=== PATIENT | male | born 1950 | race Caucasian/White ===

== ENCOUNTER 2017-12-30 17:55 | Emergency (ER) | payer OTHER, MEDICAID ==
--- NOTE | 2017-12-30 18:14 | EDPHY ---
H & P Stated Complaint: fever since yesterday, swelling in legs Source: Patient, Family (son), Old records Exam Limitations: No limitations - Personal History Current Tetanus Diphtheria and Acellular Pertussis (TDAP): Unsure - Medical/Surgical History Hx Asthma: No Hx Chronic Respiratory Disease: No Hx Diabetes: Yes Hx Cardiac Disease: Yes Hx Renal Disease: No Hx Cirrhosis: No Hx Alcoholism: No Hx HIV/AIDS: No Hx Splenectomy or Spleen Trauma: No Other PMH: DM2, hyperlipidemia, HTN, Hypogonadism, paresthesia, peripheral neuropathy - Social History Smoking Status: Never smoked Time Seen by Provider: 12/30/17 18:14 HPI/ROS: HPI: This is a 67-year-old male who presents with Chief Complaint: fever since yesterday, swelling in legs Location: Body Quality: Fever Duration: Last night Signs and Symptoms: + fever, no nausea, no vomiting, no diarrhea, no urinary symptoms, no chest pain, no shortness of breath, no wheezing, no cough, no sore throat, no neck stiffness, no joint pain, no swollen glands, no ear pain, + chronic lower extremity swelling Timing: Acute Severity: Moderate Context: Patient lives at [facility] presents with complaints of fever that started last night accompanied by chills. He denies any body aches, cough, shortness of breath, chest pain, neck stiffness, abdominal pain, nausea, vomiting. Patient has chronic history of lower extremity venous stasis; left greater than right. Son at bedside reports that is at baseline. Takes aspirin daily unsure of last antipyretic does. Denies any urinary symptoms. Ate breakfast today and lunch but has not had dinner. Vital signs reviewed upon arrival and no fever. Denies history of CHF/shortness of breath/orthopnea/ paroxysmal nocturnal dyspnea. Modifying Factors: Regular home medications Comment: ROS: see HPI Constitutional: + fever, + chills, no weight loss Eyes: No blurred vision Respiratory: No shortness of breath, no cough Cardiovascular: No chest pain, no palpitations Gastrointestinal: No nausea, no vomiting, no diarrhea, no hematemesis, no blood in stool Genitourinary: No dysuria, no blood in urine Extremities: No myalgias, no edema Neurologic: No weakness, no numbness Skin: No rashes, no petechiae Hematologic: No bruising, no bleeding MEDICAL/SURGICAL/SOCIAL HISTORY: Medical history: DM2, hyperlipidemia, HTN, Hypogonadism, paresthesia, peripheral neuropathy Surgical history: Unknown Social history: Lives in assisted living. Family history noncontributory. CONSTITUTIONAL: Ill but nontoxic-appearing elderly white male, awake and alert , no obvious distress HEENT: Atraumatic and normocephalic, PERRL, EOMI. Nares patent; no rhinorrhea; no nasal mucosal edema. Tympanic membranes clear. Oropharynx clear, no exudate and dry oral mucosa. Airway patent. No lymphadenopathy. No meningismus. no JVD. Cardiovascular: Normal S1/S2, regular rate, regular rhythm, without murmur rub or gallop. PULMONARY/CHEST: Symmetrical and nontender. Clear to auscultation bilaterally. Good air movement. No accessory muscle usage. ABDOMEN: Soft, nondistended, nontender, no rebound, no guarding, no peritoneal signs, no masses or organomegaly. No CVAT. EXTREMITIES: 2/2 pulses, strength 5/5, no deformities, no clubbing, no cyanosis. Bilateral extremity chronic venous noted with scaliness; left calf larger than right-baseline per son. robert sized stage 1 ulceration noted pad of 1st digit left foot. NEUROLOGICAL: no focal neuro deficits. GCS 15. SKIN: Warm and dry, no erythema. no rash. Good capillary refill. (Jewell Bond) Constitutional: Initial Vital Signs Temperature (C) 37.7 C 12/30/17 18:00 Heart Rate 99 12/30/17 18:00 Respiratory Rate 20 12/30/17 18:00 Blood Pressure 163/89 H 12/30/17 18:00 O2 Sat (%) 94 12/30/17 18:00 O2 Delivery Mode Room Air Allergies/Adverse Reactions: No Known Allergies Allergy (Unverified 02/17/14 13:23) Home Medications: Medication Instructions Recorded Cholestoff 2 cap PO BID 02/17/14 Losartan Potassium [Cozaar] 100 mg PO HS 02/17/14 Multivitamins [Multivitamin (*)] 1 each PO DAILY 02/17/14 Testosterone IM [Testosterone 200 mg IM Q21D 02/17/14 100mg/ml IM inj (*)] glyBURIDE [Glyburide] 2.5 mg PO DAILY@18 02/17/14 metFORMIN HCL [Glucophage 500 mg 1,000 mg PO BIDMEAL 02/17/14 (*)] Amlodipine Besylate 12/30/17 Clonazepam 12/30/17 Gabapentin 12/30/17 Methotrexate 12/30/17 Myrbetriq 12/30/17 Medical Decision Making - Diagnostics Imaging Results: Imaging Impressions Chest X-Ray 12/30/17 18:30 Impression: 1. Large lung volumes without pneumonia. 2. Borderline compensated CHF. Extremity Venous Study 12/30/17 18:35 Impression: 1. No deep venous thrombosis left leg. 2. Left calf edema. 3. Bilateral inguinal lymphadenopathy. Clinical follow-up is recommended. Consider reimaging as clinically indicated. ED Course/Re-evaluation: Fever workup initiated including lab, urinalysis, chest x-ray, blood culture, bilateral lower extremity ultrasound Vital signs stable upon arrival. Given 1 L normal saline. No signs of herve cellulitis/abscess. 1910: Labs reviewed. Mild leukocytosis with left shift. No signs of anemia/ PHYLLIS/elevated LFTs/electrolyte imbalance/lactic acidosis. Influenza negative Urinalysis shows 2+ protein but no clear signs of infection/hematuria Chest x-ray radiology read shows large lung volumes with questionable borderline CHF, no herve opacity to indicate pneumonia. Left lower extremity ultrasound shows no deep venous thrombosis. O2 sats showed no hypoxia. pro-BNP 229. no herve suggestion of CHF. No prior history of CHF. no fever while in the ER. At discharge; son reports to me that patient has an ulcer at the bottom of his left foot-unknown time. Politely declined any imaging in the emergency room. No herve fluctuance to I and D. No signs of gangrene. Requesting wound clinic follow-up outpatient. Reassessed patient who is drinking fluids and eating Victor Manuel crackers at bedside. Requesting to be discharged. decreased coordination noted. again, offered admission and patient/family politely declined. wish to follow up outpatient. This patient was seen under the supervision of my secondary supervising physician. I evaluated care for this patient independently. Discussed this patient with Dr. Man who did not see the patient. (Jewell Bond) I did not see this patient while he was in the emergency department. However his care was discussed with the PA while the patient was in the department. I agree with treatment plan and management (Mello Man) Differential Diagnosis: Adult fever including but not limited to viral syndromes including influenza, urinary tract infection, pneumonia and sepsis. (Jewell Bond) - Data Points Laboratory Results: Laboratory Results 12/30/17 18:20 12/30/17 18:20 12/30/17 12/30/17 12/30/17 18:56 18:37 18:20 WBC RBC Hgb Hct MCV MCH MCHC RDW Plt Count MPV Neut % (Auto) Lymph % (Auto) [place] % (Auto) Eos % (Auto) Baso % (Auto) Nucleat RBC Rel Count Absolute Neuts (auto) Absolute Lymphs (auto) Absolute Monos (auto) Absolute Eos (auto) Absolute Basos (auto) Absolute Nucleated RBC Immature Gran % Immature Gran # VBG Lactic Acid Sodium Potassium Chloride Carbon Dioxide Anion Gap BUN Creatinine Estimated GFR Glucose Calcium Total Bilirubin Conjugated Bilirubin Unconjugated Bilirubin AST ALT Alkaline Phosphatase NT-Pro-B Natriuret Pep 229 pg/mL H pg/mL (0-125) Total Protein Albumin Urine Color YELLOW Urine Appearance CLEAR Urine pH 6.0 (5.0-7.5) Ur Specific [place] 1.017 (1.002-1.030) Urine Protein 2+ H (NEGATIVE) Urine Ketones NEGATIVE (NEGATIVE) Urine Blood NEGATIVE (NEGATIVE) Urine Nitrate NEGATIVE (NEGATIVE) Urine Bilirubin NEGATIVE (NEGATIVE) Urine Urobilinogen NEGATIVE EU EU (0.2-1.0) Ur Leukocyte Esterase NEGATIVE (NEGATIVE) Urine RBC 1-3 /hpf /hpf (0-3) Urine WBC 1-3 /hpf /hpf (0-3) Ur Epithelial Cells TRACE /lpf /lpf (NONE-1+) Urine Mucus TRACE /lpf /lpf (NONE-1+) Urine Glucose NEGATIVE (NEGATIVE) Nasal Influenza A PCR NEGATIVE FOR FLU A (NEGATIVE) Nasal Influenza B PCR NEGATIVE FOR FLU B (NEGATIVE) 12/30/17 12/30/17 12/30/17 18:20 18:20 18:20 WBC 10.66 10^3/uL H 10^3/uL (3.80-9.50) RBC 4.59 10^6/uL 10^6/uL (4.40-6.38) Hgb 14.7 g/dL g/dL (13.7-17.5) Hct 42.5 % % (40.0-51.0) MCV 92.6 fL fL (81.5-99.8) MCH 32.0 pg pg (27.9-34.1) MCHC 34.6 g/dL g/dL (32.4-36.7) RDW 13.9 % % (11.5-15.2) Plt Count 214 10^3/uL 10^3/uL (150-400) MPV 9.3 fL fL (8.7-11.7) Neut % (Auto) 83.8 % H % (39.3-74.2) Lymph % (Auto) 7.6 % L % (15.0-45.0) [place] % (Auto) 7.4 % % (4.5-13.0) Eos % (Auto) 0.0 % L % (0.6-7.6) Baso % (Auto) 0.7 % % (0.3-1.7) Nucleat RBC Rel Count 0.0 % % (0.0-0.2) Absolute Neuts (auto) 8.94 10^3/uL H 10^3/uL (1.70-6.50) Absolute Lymphs (auto) 0.81 10^3/uL L 10^3/uL (1.00-3.00) Absolute Monos (auto) 0.79 10^3/uL 10^3/uL (0.30-0.80) Absolute Eos (auto) 0.00 10^3/uL L 10^3/uL (0.03-0.40) Absolute Basos (auto) 0.07 10^3/uL 10^3/uL (0.02-0.10) Absolute Nucleated RBC 0.00 10^3/uL 10^3/uL (0-0.01) Immature Gran % 0.5 % % (0.0-1.1) Immature Gran # 0.05 10^3/uL 10^3/uL (0.00-0.10) VBG Lactic Acid 1.1 mmol/L mmol/L (0.7-2.1) Sodium 134 mEq/L L mEq/L (135-145) Potassium 4.4 mEq/L mEq/L (3.5-5.2) Chloride 100 mEq/L mEq/L (97-110) Carbon Dioxide 24 mEq/l mEq/l (22-31) Anion Gap 10 mEq/L mEq/L (8-16) BUN 21 mg/dL mg/dL (7-23) Creatinine 1.0 mg/dL mg/dL (0.7-1.3) Estimated GFR > 60 Glucose 169 mg/dL H mg/dL (70-100) Calcium 8.7 mg/dL mg/dL (8.5-10.4) Total Bilirubin 0.6 mg/dL mg/dL (0.1-1.4) Conjugated Bilirubin 0.4 mg/dL mg/dL (0.0-0.5) Unconjugated Bilirubin 0.2 mg/dL mg/dL (0.0-1.1) AST 19 IU/L IU/L (17-59) ALT 35 IU/L IU/L (21-72) Alkaline Phosphatase 72 IU/L IU/L (38-126) NT-Pro-B Natriuret Pep Total Protein 6.9 g/dL g/dL (6.3-8.2) Albumin 3.6 g/dL g/dL (3.5-5.0) Urine Color Urine Appearance Urine pH Ur Specific [place] Urine Protein Urine Ketones Urine Blood Urine Nitrate Urine Bilirubin Urine Urobilinogen Ur Leukocyte Esterase Urine RBC Urine WBC Ur Epithelial Cells Urine Mucus Urine Glucose Nasal Influenza A PCR Nasal Influenza B PCR Medications Given: Discontinued Medications Sodium Chloride (Ns) 1,000 mls @ 0 mls/hr IV ONCE ONE; Wide Open PRN Reason: Protocol Stop: 12/30/17 18:30 Last Admin: 12/30/17 18:41 Dose: 1,000 mls Departure - Departure Disposition: Home, Routine, Self-Care Clinical Impression: History of unexplained fever Decubitus ulcer of foot, stage 1 Qualifiers: Laterality: left Qualified Code(s): L89.891 - Pressure ulcer of other site, stage 1 Type 2 DM with diabetic peripheral angiopathy w/o gangrene Qualifiers: Diabetes mellitus buttermaker continuous churn insulin use: without buttermaker continuous churn use Qualified Code(s ): E11.51 - Type 2 diabetes mellitus with diabetic peripheral angiopathy without gangrene Condition: Good Instructions: Fever in Adults (ED), Pressure Ulcer (ED) Additional Instructions: Follow-up with primary care provider in 1-2 days for close re-evaluation. Please place padding on the heels and feet of both feet to prevent skin breakdown. Follow-up with the wound clinic for further evaluation of the left decubitus ulcer in the next 3-4 days. Take Tylenol 650 mg every 4 hours and/or Ibuprofen 600 mg every 8 hours with food as needed for pain. Follow-Up: Please follow-up as noted above. Follow-up sooner if your condition worsens or if you develop any new problems. Call as soon as possible for an appointment. Be clear when you call for an appointment that this is an Emergency Department follow-up. Contact the Emergency Department if you have trouble arranging follow-up care. Our referrals are not based on your insurance network. When time allows, contact your insurance carrier to verify the referral physician is in your plan. If not, get a referral for an in-ethernet network architect. Return at once for any worsening symptoms or concerns. Referrals: Ta Cobb MD [Primary Care Provider] - 1-2 days without fail [facility] [Clinic] - 2-3 days without fail
[2017-12-30] MEDS ORDERED: NS 1,000 ML IV ONE (18:29)
[2017-12-30 18:44] LABS: PLATELET COUNT 214 10^3/uL (150-400)
[2017-12-30 19:54] VITALS: BP 179/83
== END 2017-12-30 20:28 | disposition home or self-care (01) ==
DX: E11.51 Type 2 diabetes mellitus with diabetic peripheral angiopathy without gangrene (principal); L89.891 Pressure ulcer of other site, stage 1; R50.9 Fever, unspecified; I10 Essential (primary) hypertension; E86.9 Volume depletion, unspecified; Z79.84 Long term (current) use of oral hypoglycemic drugs

== ENCOUNTER 2018-01-23 09:58 | Inpatient (IN) | payer OTHER, MEDICAID ==
[~2018-01-23 09:58] MED LIST: BUPIVACAINE 0.5% 30 ML SDV ONE; VANCOMYCIN 1.5 GM in NS 250 ML IV ONE; VANCOMYCIN PHARMACY TO DOSE MISC ONE
[2018-01-23] MEDS ORDERED: ceFAZolin 2 GM/SWFI 2 GM/20 ML SYR IVP ONE (10:04)
[2018-01-23] MEDS ORDERED: LR 1,000 ML IV ONE (10:14)
--- NOTE | 2018-01-23 10:31 | GHP ---
[f rep st] PREOP HISTORY AND PHYSICAL DATE OF ADMISSION: 01/23/2018 DATE OF SURGERY: 01/23/2018. CHIEF COMPLAINT: Diabetic foot ulcer. HISTORY OF PRESENT ILLNESS: The patient is a 67-year-old man who has [facility] for a diabetic foot ulcer and wound care. He has had debridement in the office. He has bone exposed in the base of the wound, but he was not yet ready to proceed with amputation. He is not currently on antibiotics. He denies fevers, chills, redness, swelling or pain. He has a significant degree of diabetic neuropathy. PAST MEDICAL HISTORY: Type 2 diabetes, hyperlipidemia, hypertension, neuropathy. SOCIAL HISTORY: He lives alone. He denies tobacco, alcohol or recreational drug use. FAMILY HISTORY: Noncontributory to wound. ALLERGIES: No known drug allergies. PAST SURGICAL HISTORY: None. REVIEW OF SYSTEMS: Ten-point review of systems negative, aside from HPI. PHYSICAL EXAMINATION: GENERAL: Well-developed, well-nourished man in no acute distress. HEENT: Normocephalic, atraumatic. No hearing deficits. Pupils equal and round. No scleral icterus. Mucous membranes moist. NECK: Trachea midline. RESPIRATORY: No increased work of breathing. Clear to auscultation bilaterally. CARDIOVASCULAR: Regular rate and rhythm. No peripheral edema. SKIN: He has a wound on the left lower extremity, plantar surface, which probes to bone, of the 5th metatarsal head. Malodorous, significant slough in the wound. Additional wound of L calcaneous. PSYCH: Mood and affect normal. NEURO: Grossly intact. IMPRESSION AND PLAN: A 67-year-old man with diabetic foot ulcer, suspected osteomyelitis. He will go to the operating room for left 5th toe amputation with debridement of skin and soft tissue of the calcaneous. He will receive antibiotics on-call to the operating room. We discussed risks of surgery, including but not limited to, heart attack, stroke, blood clots or . We discussed risk of infection, bleeding, damage to surrounding structures, delayed wound healing, need for additional procedures. He understands the risks and would like to proceed. He will receive antibiotics on-call to the operating room. Consent will be signed and in his chart. Additionally, seen by Dr. Alexandra Presley, who agrees with the above impression and plan. /[id number]/MODL MTDD
--- NOTE | 2018-01-23 10:35 | CPEKG ---
Heart Rate: 73 RR Interval: 822 P-R Interval: 208 QRSD Interval: 96 QT Interval: 376 QTC Interval: 415 P Creole: 68 QRS Creole: -8 T Wave Creole: 17 EKG Severity - ABNORMAL ECG - EKG Impression: SINUS RHYTHM Electronically Signed By: Campbell Bess 24-Jan-2018 09:29:28
--- NOTE | 2018-01-23 11:16 | PDHPUP ---
History & Physical Update H&P update statement: This history and physical update is based on an assessment of the patient which was completed after admission or registration (within 24 hours), but prior to the surgery/procedure. H&P update: H&P reviewed & patient examined, no change in patient's condition since H&P completed (will not debride heel)
--- NOTE | 2018-01-23 12:52 | PDANEPAE ---
ANE History of Present Illness diabetic foot, here for toe amputation ANE Past Medical History - Cardiovascular History Hx Hypertension: Yes Hx Arrhythmias: No Hx Chest Pain: No Hx Coronary Artery / Peripheral Vascular Disease: Yes Hx CHF / Valvular Disease: No Hx Palpitations: No Cardiovascular History Comment: PVD Diabetes - Pulmonary History Hx COPD: No Hx Asthma/Reactive Airway Disease: No Hx Recent Upper Respiratory Infection: No Hx Oxygen in Use at Home: No Hx Sleep Apnea: No Sleep Apnea Screening Result - Last Documented: Positive Pulmonary History Comment: LAURA triggers only - Neurologic History Hx Cerebrovascular Accident: No Hx Seizures: No Hx Dementia: No Neurologic History Comment: COGNITIVE IMPAIRMENT - Endocrine History Hx Diabetes: Yes Endocrine History Comment: type 11 NIDDM - Renal History Hx Renal Disorders: No - Liver History Hx Hepatic Disorders: No - Neurological & Psychiatric Hx Hx Neurological and Psychiatric Disorders: Yes Neurological / Psychiatric History Comment: NEUROPATHY, POLYMYOSITIS - Cancer History Hx Cancer: No - Congenital Disorder History Hx Congenital Disorders: No - GI History Hx Gastrointestinal Disorders: No - Other Health History Other Health History: LEFT FOOT ULCERS/CELLULITIS - Chronic Pain History Chronic Pain: Yes (NEUROPATHY TO FEET) - Surgical History Prior Surgeries: none ANE Review of Systems Review of Systems: - Exercise capacity METS (RN): 3 METS ANE Patient History - Allergies Allergies/Adverse Reactions: No Known Allergies Allergy (Verified 01/20/18 10:33) - Home Medications Home medications: home medication list seen and reviewed Home Medications: Multivitamins [Multivitamin (*)] 1 each PO DAILY 02/17/14 [Last Taken 01/22/18] Testosterone IM [Testosterone 100mg/ml IM inj (*)] 250 mg IM Q21D 02/17/14 [ Last Taken 01/02/18] metFORMIN HCL [Glucophage 500 mg (*)] 1,000 mg PO BIDMEAL 02/17/14 [Last Taken 01/22/18] Gabapentin [Neurontin 300 MG (*)] 300 mg PO TID@,,12/30/17 [Last Taken ] Methotrexate Sodium [Rheumatrex 2.5 mg (RX)] 7.5 mg PO MO@0700 12/30/17 [Last Taken 01/18/18] amLODIPine BESYLATE [Norvasc 5 mg (*)] 5 mg PO DAILY 12/30/17 [Last Taken 06:00] Folic Acid [Folic Acid 1 MG (*)] 1 mg PO DAILY 01/20/18 [Last Taken 01/22/18] Furosemide [Lasix 40 MG (*)] 40 mg PO DAILY 01/20/18 [Last Taken 01/21/18] Gabapentin [Neurontin 300 MG (*)] 300 - 600 mg PO HS 01/20/18 [Last Taken ] Herbals/Supplements -Info Only 1 ea PO DAILY 01/20/18 [Last Taken 01/22/18] Losartan/Hydrochlorothiazide [Losartan-Hctz 100-25 mg Tab] 1 each PO DAILY 01/20 [Last Taken 01/22/18] clonIDINE [Catapres (*)] 0.1 mg PO BID 01/20/18 [Last Taken 01/23/18 06:00] glipiZIDE XL [Glucotrol XL 10 MG (*)] 10 mg PO DAILY 01/20/18 [Last Taken ] Myrbetriq 01/23/18 [Last Taken 01/23/18] - NPO status NPO Since - Liquids (Date): 01/23/18 NPO Since - Liquids (Time): 08:00 NPO Since - Solids (Date): 01/22/18 NPO Since - Solids (Time): 18:00 - Anes Hx Anes Hx: no prior problems - Smoking Hx Smoking Status: Never smoked - Alcohol Use Alcohol Use: Rarely - Family Anes Hx Family Anes Hx: none Family Hx Anesthesia Complications: none ANE Labs/Vital Signs - Labs Result Diagrams: 01/23/18 10:40 - Vital Signs Blood Pressure: 133/77 Heart Rate: 77 Respiratory Rate: 18 O2 Sat (%): 92 Height: 185.42 cm Weight: 95.254 kg ANE Physical Exam - Airway Neck exam: FROM Mallampati Score: Class 2 Mouth exam: poor dentition, dentures - Pulmonary Pulmonary: no respiratory distress, clear to auscultation - Cardiovascular Cardiovascular: regular rate and rhythym, no murmur, rub, or gallop - ASA Status ASA Status: III ANE Anesthesia Plan Anesthesia Plan: GA w LMA
[2018-01-23] MEDS ORDERED: fentaNYL 100 MCG/2 ML INJ ONE ×2 (12:57→14:28)
[2018-01-23] MEDS ORDERED: PROPOFOL 200 MG/20 ML VIAL ONE (12:57)
--- NOTE | 2018-01-23 14:05 | POSTOPPROG ---
Post Op Note Date of Operation: 01/23/18 Surgeon: Alexandra Presley Assistant Associate Professor: lyric Anesthesiologist: rhoda Anesthesia: GET(General Endotracheal) Pre-op Diagnosis: DFU Post-op Diagnosis: same Indication: 67yo F with DFU Procedure: amputation L 5th toe and met head, debride skin soft tissue and tendon Findings: tunneling medially along plantar fascia 7cm, wound 9x3x1 Inf/Abcess present in the surg proc area at time of surgery?: Yes Depth: Deep Incisional (Fascial) EBL: Minimal Drains: Wound Vac Specimen(s): toe path met head micro met head path
[2018-01-23] MEDS ORDERED: HYDROCODONE/APAP 5/325 TAB PO PRN (14:06)
[2018-01-23] MEDS ORDERED: diphenhydrAMINE 25 MG CAP PO PRN (14:06)
[2018-01-23] MEDS ORDERED: ONDANSETRON 4 MG/2 ML VIAL IVP PRN ×2 (14:06→14:19)
[2018-01-23] MEDS ORDERED: ONDANSETRON DISINTEGRATING 4 MG TAB PO PRN (14:06)
[2018-01-23] MEDS ORDERED: D50W 25 GM/50 ML SYR IVP PRN ×2 (14:06→16:12)
[2018-01-23] MEDS ORDERED: HYDROmorphONE/DILAUDID 2 MG/ML INJ IVP PRN (14:19)
[2018-01-23] MEDS ORDERED: NALOXONE HCL 0.4 MG/ML INJ IVP PRN (14:19)
[2018-01-23] MEDS ORDERED: PROMETHAZINE HCL 25 MG/ML INJ IVP PRN (14:19)
--- NOTE | 2018-01-23 14:21 | POSTANESTH ---
Post Anesthetic Evaluation Cardiovascular Status: Normal, Stable, Similar to Pre-Op Cond Respiratory Status: Normal, Stable, Similar to Pre-op Cond. Level of Consciousness/Mental Status: Can Participate in Eval, Mildly Sleepy, Arousable Pain Control: Adequate, Prn Tx Ordered Nausea/Vomiting Control: Adequate, Prn Tx Ordered Complications Possibly Related to Anesthesia: None Noted
[2018-01-23] MEDS: fentaNYL 100 MCG/2 ML INJ IVP PRN ×2 (14:29→14:36)
[2018-01-23] MEDS ORDERED: HYDROmorphONE/DILAUDID 1 MG/ML INJ ONE (14:55)
--- NOTE | 2018-01-23 14:58 | ASMTCMCOM ---
CM Note CM Note Notes: Michelle with [facility] reports they are open on pt for RN. Date Signed: 01/23/2018 02:57 PM Electronically Signed By:YANA Carr
[2018-01-23] MEDS ORDERED: FUROSEMIDE 20 MG/2 ML VIAL IVP ONE (16:00)
[2018-01-23] MEDS ORDERED: hydrALAZINE 20 MG/ML VIAL IVP PRN (16:01)
--- NOTE | 2018-01-23 16:08 | PDHOSCONS ---
History and Physical - Chief Complaint medical management - History of Present Illness We have been asked to provide consultation regarding this 67 yo male who had debridement and partial amputation of his left foot today. He has a hx of HTN and Diabetes. He is seen in the post operative period. He is slightly confused and is not the best historian. His BP is elevated. It is unclear what medications he has had today. Hi d/o of some pain to the his left foot. He denies fever, n/v. ROS: difficult due to the pts current cognition PHx: HTN, HLD, DMII, Neuropathy, Polymyositis, PSHx: debridement SocHx: no tobacco, social ETOH, no illicits FmHx: + DMII prior labs reviewed History Information - Allergies/Home Medication List Allergies/Adverse Reactions: No Known Allergies Allergy (Verified 01/20/18 10:33) Home Medications: Multivitamins [Multivitamin (*)] 1 each PO DAILY 02/17/14 [Last Taken 01/22/18] Testosterone IM [Testosterone 100mg/ml IM inj (*)] 250 mg IM Q21D 02/17/14 [ Last Taken 01/02/18] metFORMIN HCL [Glucophage 500 mg (*)] 1,000 mg PO BIDMEAL 02/17/14 [Last Taken 01/22/18] Gabapentin [Neurontin 300 MG (*)] 300 mg PO TID@,12/30/17 [Last Taken ] Methotrexate Sodium [Rheumatrex 2.5 mg (RX)] 7.5 mg PO MO@0700 12/30/17 [Last Taken 01/18/18] amLODIPine BESYLATE [Norvasc 5 mg (*)] 5 mg PO DAILY 12/30/17 [Last Taken 06:00] Folic Acid [Folic Acid 1 MG (*)] 1 mg PO DAILY 01/20/18 [Last Taken 01/22/18] Furosemide [Lasix 40 MG (*)] 40 mg PO DAILY 01/20/18 [Last Taken 01/21/18] Gabapentin [Neurontin 300 MG (*)] 300 - 600 mg PO HS 01/20/18 [Last Taken ] Herbals/Supplements -Info Only 1 ea PO DAILY 01/20/18 [Last Taken 01/22/18] Losartan/Hydrochlorothiazide [Losartan-Hctz 100-25 mg Tab] 1 each PO DAILY 01/20 [Last Taken 01/22/18] clonIDINE [Catapres (*)] 0.1 mg PO BID 01/20/18 [Last Taken 01/23/18 06:00] glipiZIDE XL [Glucotrol XL 10 MG (*)] 10 mg PO DAILY 01/20/18 [Last Taken ] Myrbetriq 01/23/18 [Last Taken 01/23/18] I have personally reviewed and updated: medical history, social history - Social History Smoking Status: Never smoked Alcohol Use: Rarely Review of Systems Review of Systems: ROS: 10pt was reviewed & negative except for what was stated in HPI & below Physical Exam Physical Exam: Temp Pulse Resp BP Pulse Ox 36.1 C 73 5 L 155/77 H 96 01/23/18 14:46 01/23/18 14:09 01/23/18 14:46 01/23/18 14:46 01/23/18 14:46 O2 (L/minute) 2 Constitutional: no apparent distress Eyes: PERRL, EOMI Ears, Nose, Mouth, Throat: moist mucous membranes, hearing normal, ears appear normal Respiratory: no respiratory distress Gastrointestinal: normoactive bowel sounds, soft, non-tender abdomen Skin: warm Neurologic: No AAOx3 Psychiatric: interacting appropriately, not anxious, encephalopathic Lymph, Heme, Immunologic: No petechiae Lab Data & Imaging Review 01/23/18 10:40 Sodium 135 mEq/L (135-145) 01/23/18 10:40 Potassium 5.1 mEq/L (3.3-5.0) H 01/23/18 10:40 Chloride 99 mEq/L (97-110) 01/23/18 10:40 Carbon Dioxide 24 mEq/l (22-31) 01/23/18 10:40 Anion Gap 12 mEq/L (8-16) 01/23/18 10:40 BUN 39 mg/dL (7-23) H 01/23/18 10:40 Creatinine 1.1 mg/dL (0.7-1.3) 01/23/18 10:40 Estimated GFR > 60 01/23/18 10:40 Glucose 145 mg/dL (70-100) H 01/23/18 10:40 Calcium 8.3 mg/dL (8.5-10.4) L 01/23/18 10:40 Assessment & Plan Assessment: #s/p Left foot wound debridement with partial amputation -post op care per primary -pain mgmt per primary #HTN -Provide Hydralaizine -restart home meds, he is on multiple meds. I have held 2 of them and these can be restarted in a.m if needs it. cover with Hydralazine for now #Hyperkalemia: 5.1 -check Mg -Lasix x 1 now -restart home Lasix #Neuropathy #DM -restart Glipizid -ISS -Hold Metformin #Polymyositis -home meds SCD's I have completed the med rec thank you for this consult, we will follow along
--- NOTE | 2018-01-23 17:26 | SOAPPROG ---
SOAP Progress Note Assessment/Plan: Assessment: s/p amputation 5th toe and metatarsal head for grossly infected wound and osteomylitis Tracks 7 cm by plantars fascia lateral to medial Veraflo if leaks or problems can transition to traditional settings on wound vac 125 mm Hg Plan: 01/23/18 17:25 Objective: Vital Signs Temp Pulse Resp BP Pulse Ox 37.2 C 86 16 159/82 H 91 L 01/23/18 17:14 01/23/18 17:14 01/23/18 17:14 01/23/18 17:14 01/23/18 17:14 Laboratory Results 01/23/18 10:40 01/22/18 01/23/18 01/24/18 05:59 05:59 05:59 Intake Total 850 Output Total 475 Balance 375 ICD10 Worksheet Patient Problems: Problems Problem Status Onset Knee pain, bilateral Acute Neurodegenerative disorder Acute
[2018-01-23] MEDS ORDERED: INSULIN REGULAR HUMAN 100 UNIT/ML UNIT SC SCH (17:30)
[2018-01-23] MEDS: GABAPENTIN 300 MG CAP PO SCH ×2 (17:49→20:03)
[2018-01-23] MEDS ORDERED: PIPERACILLIN/TAZO 3.375 GM/DEX 50 ML IV SCH (18:00)
[2018-01-23] MEDS ORDERED: INSULIN LISPRO 100 UNIT/ML SC SCH (18:00)
[2018-01-23] MEDS: ACETAMINOPHEN 325 MG TAB PO PRN (20:03)
--- NOTE | 2018-01-23 22:50 | GCON ---
[f rep st] CONSULTATION INFECTIOUS DISEASE CONSULTATION. DATE OF CONSULTATION: 01/23/2018 REFERRING PHYSICIAN: Alexandra Presley MD REASON FOR CONSULTATION: Left 5th metatarsal osteomyelitis and abscess. HISTORY OF PRESENT ILLNESS: This is a 67-year-old male with poorly controlled type 2 diabetes, with last hemoglobin A1c of 9.4, who [facility] for a variety of lower extremity wounds. Currently, patient has had a wound on his left lateral foot, and subsequently known to have palpable bone within this wound. Initially, patient was unwilling to undergo surgery, but after lack of healing and recent antibiotic therapy with doxycycline, patient was agreeable to undergo left 5th toe and metatarsal head amputation in the operating room. It was found to have tunneling along the plantar fascia of 7 cm. Patient was left with a residual wound 9 x 3 x 1 cm. Wound VAC was left in place at the end of surgery. Patient reports that his wound started as a callus, and then became a blood blister, then the wound as described above. He denies any systemic symptoms. He does describe recent weight loss. In our system, he has been as high as 106 kg, and today he is 95. 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 Peripheral neuropathy. Diabetes type 2; hemoglobin A1c as per HPI. Hypertension. Hypogonadism. Microalbuminemia. Paresthesias. PAST SURGICAL HISTORY: He has had a muscle biopsy in the past, and surgery today. SOCIAL HISTORY: Patient uses alcohol. Lives alone at [facility]. 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 He is single. No tobacco. No recent travel. He moved to [place] in June of 1962. FAMILY HISTORY: Reviewed, and noncontributory. ALLERGIES: NKDA. MEDICATIONS: Patient received perioperative Ancef, a dose of vancomycin, and was on Zosyn 3.375 g IV q.6. He is also on Zofran, methotrexate 7 5 mg daily; insulin; hydralazine as needed; glipizide 10 mg daily; gabapentin 300 mg at 9000 , 1200, and 1800, and q.h.s.; Lasix 40 mg daily; Benadryl as needed; folic acid 1 mg daily; clonidine 0.1 mg twice daily; Norvasc 5 mg daily; [place] 5/325 as needed. REVIEW OF SYSTEMS: A complete 10-point review of systems was performed, and is negative except as mentioned in the HPI. PHYSICAL EXAMINATION: VITAL SIGNS: Blood pressure 134/84, heart rate 100, respiratory rate 16, saturation 90% on room air. Temperature 36.6, T-max 37.2. GENERAL: This is a nontoxic-appearing male lying flat in bed. No distress. HEENT: Poor dentition. Dry mucous membranes. NECK: Supple. No lymphadenopathy. CARDIOVASCULAR: Regular rate. He was not tachycardic at the time of my exam. No murmurs. CHEST: Clear to auscultation bilaterally. ABDOMEN: Slightly distended, soft, nontender. Bowel sounds are present. EXTREMITIES: His left ankle is mildly edematous, without lymphangitis. He has obvious surgical area on his left lateral foot with significant hematoma under the wound VAC. He also has a pressure ulcer on his left heel. His dorsalis pedis pulses are 1+ bilaterally. His right lower extremity had no wounds. He had normal capillary refill and loss of hair bilaterally on the lower extremities. NEUROLOGIC: Patient was moving all 4 extremities equally, but notable for bilateral wasting of the dorsum of his hands. LABORATORY: White count 13.4, hematocrit 48, platelets of 534; 79% neutrophils , 11% lymphocytes. Creatinine 1.1. Gram stain from the operating room shows 2 + PMNs and rare GPCs. ASSESSMENT AND PLAN: This is a 67-year-old male with poorly controlled diabetes , chronic MTX, peripheral neuropathy, with a nonhealing left lateral foot wound , status post 5th toe and metatarsal head amputation, with significant tracking identified in the operating room. Cultures and pathology were sent by surgical team, and gram stain noted to be positive for GPC. Based on surgical findings, likely high-risk situation and discussed likely need for 6 weeks of IV therapy, unless additional culture or pathology results suggest complete revision of infection. Patient with no positive microbiologic data in the computer, and limited antibiotic exposure, notably only for recent doxycycline. I think it is reasonable to empirically treat patient with Unasyn 3 g IV q.6. Would discontinue Zosyn and vancomycin for now. Will follow up on cultures and discuss surgical findings further with surgical team over the weekend. Thank you for this consultation. Will continue to follow on a daily basis. /[id number]/MODL MTDD
[2018-01-23] MEDS: AMPICILLIN/SULBACTAM 3 GM in NS 100 ML IV SCH (23:17)
[2018-01-23] MEDS: INSULIN LISPRO 100 UNIT/ML SC SCH (23:52)
[2018-01-24] MEDS: AMPICILLIN/SULBACTAM 3 GM in NS 100 ML IV SCH ×2 (05:05→13:12)
[2018-01-24 05:07] LABS: PLATELET COUNT 354 10^3/uL (150-400)
[2018-01-24] MEDS: MULTIVITAMINS 1 EACH TAB PO SCH (08:55)
[2018-01-24] MEDS: FOLIC ACID 1 MG TAB PO SCH (08:55)
[2018-01-24] MEDS: FUROSEMIDE 40 MG TAB PO SCH (08:55)
[2018-01-24] MEDS: amLODIPine BESYLATE 5 MG TAB PO SCH (08:55)
[2018-01-24] MEDS: INSULIN LISPRO 100 UNIT/ML SC SCH ×4 (08:56→21:38)
[2018-01-24] MEDS: GABAPENTIN 300 MG CAP PO SCH ×4 (08:56→21:38)
--- NOTE | 2018-01-24 12:08 | PCMIDPN ---
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 #OM L 5th Met with positive gram stain for GPC. Also significant tracking along fascia ID in OR --dc unasyn --start vancomycin 1.25gm IV q12 CrCl 90 --will need at least 2 weeks IV antibiotics and likely longer due to pos gram stain of bone. PICC okay to be placed at anytime meds unasyn 3gm IV q6h #1 Micro 01/23 Bone: rare GPC, Cx NGTD Subjective: patient w/o c/o today denies diarrhea, itching, rash Objective: Vital Signs Temp Pulse Resp BP Pulse Ox 36.6 C 73 18 134/64 H 93 01/24/18 10:13 01/24/18 10:13 01/24/18 10:13 01/24/18 10:13 01/24/18 10:13 Microbiology 01/23/18 13:39 Gram Stain - Final Toe - Bone Laboratory Results 01/24/18 04:57 01/24/18 04:57 01/23/18 01/24/18 01/25/18 05:59 05:59 05:59 Intake Total 850 Output Total 1875 300 Balance -1025 -300 C-Reactive Protein 53.6 mg/L (<10.0) H 01/23/18 10:40 - Physical Exam General Appearance: alert, no apparent distress Respiratory: lungs clear, No accessory muscle use Cardiac/Chest: regular rate, rhythm Extremities: other (wound vac in place lateral L foot, no surrounding erythema. Pulse barely palpable, no ischemic changes) Skin: pallor, No rash Neuro/Psych: alert, oriented x 3, other (flat affect) ICD10 Worksheet Patient Problems: Problems Problem Status Onset Knee pain, bilateral Acute Neurodegenerative disorder Acute
--- NOTE | 2018-01-24 12:17 | SOAPPROG ---
SOAP Progress Note Assessment/Plan: Assessment: STATUS POST 5TH TOE AMPUTATION AND ABSCESS DRAINAGE AFEBRILE/VITAL SIGNS STABLE/VAC IN PLACE/ANTIBIOTICS PER ID/NEED VERA FLOW STOPPED ON THE WOUND VAC WEAK PEDAL PULSES Plan: CONTINUE VAC THERAPY 01/24/18 12:17 01/24/18 14:43 Objective: Vital Signs Temp Pulse Resp BP Pulse Ox 36.6 C 73 18 134/64 H 93 01/24/18 10:13 01/24/18 10:13 01/24/18 10:13 01/24/18 10:13 01/24/18 10:13 Microbiology 01/23/18 13:39 Gram Stain - Final Toe - Bone Laboratory Results 01/24/18 04:57 01/24/18 04:57 01/23/18 01/24/18 01/25/18 05:59 05:59 05:59 Intake Total 850 Output Total 4130 300 Balance -1025 -300 ICD10 Worksheet Patient Problems: Problems Problem Status Onset Knee pain, bilateral Acute Neurodegenerative disorder Acute
[2018-01-24] MEDS: VANCOMYCIN 1.25 GM in D5W 250 ML IV SCH (12:33)
--- NOTE | 2018-01-24 13:09 | PDMN ---
Medical Necessity Medical necessity: C/M review: est. > 2 MN LOS for eval and TX of left 5th toe grossly infected wound and osteomyelitis requiring 01/23/2018 surgery - amputation left 5th toe and metatarsal head, debride skin soft tissue and tendon , wound VAC placement - osteomyelitis tracks 7 cm by plantars fascia lateral to medial requiring postop Hospitalist consult, Infectious Disease consult, ongoing IV Vancomycin, wound VAC management, acute inpt PT, comorbid hypertension, type 2 diabetes per progress note.
--- NOTE | 2018-01-24 14:30 | HOSPPROG ---
Hospitalist Progress Note Assessment/Plan: 67 yo M w poorly controlled dm here pod 1 from wound debridement dm: sugars greater than goal but improved continue current plan will add lantus tomorrow if AM glucose > 200 a1c pending htn: continue home meds proph: rec lmwh pain: agree w gabapentin dispo: inpt Subjective: case d/w dr patrick. sugars improved Objective: Vital Signs Temp Pulse Resp BP Pulse Ox 36.6 C 73 18 134/64 H 93 01/24/18 10:13 01/24/18 10:13 01/24/18 10:13 01/24/18 10:13 01/24/18 10:13 Microbiology 01/23/18 13:39 Gram Stain - Final Toe - Bone Laboratory Results 01/24/18 04:57 01/24/18 04:57 01/23/18 01/24/18 01/25/18 05:59 05:59 05:59 Intake Total 850 Output Total 1875 300 Balance -1025 -300 - Physical Exam Constitutional: no apparent distress, appears nourished Eyes: PERRL, anicteric sclera Ears, Nose, Mouth, Throat: moist mucous membranes, hearing normal Cardiovascular: regular rate and rhythym, no murmur, rub, or gallop Respiratory: no respiratory distress, no rales or rhonchi Gastrointestinal: normoactive bowel sounds, soft, non-tender abdomen Genitourinary: no bladder fullness, No trejo in urethra Skin: warm, normal color Musculoskeletal: other (LLE w wound vac) Neurologic: AAOx3 ICD10 Worksheet Patient Problems: Problems Problem Status Onset Knee pain, bilateral Acute Neurodegenerative disorder Acute
[2018-01-24] MEDS ORDERED: NON-FORMULARY NEW DRUG (Mirabegron [Myrbetriq] 50 MG) PO SCH (21:00)
[2018-01-24] MEDS: Mirabegron [Myrbetriq] 50 MG PO SCH (22:28)
[2018-01-25] MEDS: VANCOMYCIN 1.25 GM in D5W 250 ML IV SCH ×2 (00:15→12:17)
[2018-01-25] MEDS: LOSARTAN/HCTZ 50/12.5 1 TAB PO SCH (08:55)
[2018-01-25] MEDS: FUROSEMIDE 40 MG TAB PO SCH (08:55)
[2018-01-25] MEDS: MULTIVITAMINS 1 EACH TAB PO SCH (08:55)
[2018-01-25] MEDS: INSULIN LISPRO 100 UNIT/ML SC SCH ×4 (08:56→20:51)
[2018-01-25] MEDS: amLODIPine BESYLATE 5 MG TAB PO SCH (08:56)
[2018-01-25] MEDS: GABAPENTIN 300 MG CAP PO SCH ×4 (08:56→20:52)
[2018-01-25] MEDS: FOLIC ACID 1 MG TAB PO SCH (08:56)
[2018-01-25] MEDS ORDERED: NON-FORMULARY NEW DRUG (Losartan/Hydrochlorothiazide [Losartan-Hctz 100-25 Mg Tab] 1 EACH) PO SCH (09:00)
[2018-01-25] MEDS: ACETAMINOPHEN 325 MG TAB PO PRN (09:45)
--- NOTE | 2018-01-25 14:31 | ASMTCMCOM ---
CM Note CM Note Notes: S/p 5th toe amputation & abscess drainage w/wound vac placement. Pt current with [facility] for RN services. PT recommending SNF. OT ordered; awaiting eval. CM will follow. Dc plan-TBD Date Signed: 01/25/2018 02:30 PM Electronically Signed By:Sarai Dyer RN
--- NOTE | 2018-01-25 14:48 | HOSPPROG ---
Hospitalist Progress Note Assessment/Plan: 67 yo M w poorly controlled dm here pod 1 from wound debridement dm: sugars greater than goal but improved continue current plan add 8 of hs lantus a1c pending htn: continue home meds proph: rec lmwh pain: agree w gabapentin dispo: inpt Subjective: blood sugars greater than goal Objective: Vital Signs Temp Pulse Resp BP Pulse Ox 36.9 C 79 18 138/75 H 92 01/25/18 08:00 01/25/18 08:00 01/25/18 08:00 01/25/18 08:00 01/25/18 08:00 Microbiology 01/23/18 13:39 Gram Stain - Final Toe - Bone Laboratory Results 01/24/18 04:57 01/24/18 04:57 01/24/18 01/25/18 01/26/18 05:59 05:59 05:59 Intake Total 850 400 Output Total 1875 1400 Balance -1025 -1000 - Physical Exam Constitutional: no apparent distress, appears nourished Eyes: PERRL, anicteric sclera Ears, Nose, Mouth, Throat: moist mucous membranes, ears appear normal Cardiovascular: regular rate and rhythym, no murmur, rub, or gallop Respiratory: no respiratory distress, no rales or rhonchi Gastrointestinal: normoactive bowel sounds, soft, non-tender abdomen Genitourinary: no bladder fullness, No trejo in urethra Skin: warm, normal color Musculoskeletal: full muscle strength, no muscle tenderness Neurologic: AAOx3 ICD10 Worksheet Patient Problems: Problems Problem Status Onset Knee pain, bilateral Acute Neurodegenerative disorder Acute
[2018-01-25] MEDS ORDERED: ALTEPLASE 2 MG VIAL IVP PRN (15:09)
--- NOTE | 2018-01-25 15:12 | PCMIDPN ---
Assessment/Plan: #Amyotrophy/polymyositis due to DM: on MTX, 3 tabs weekly #OM L 5th Met with positive gram stain for GPC. Also significant tracking along fascia ID in OR --continue vancomycin IV, CrCl 90 --will need at least 2 weeks IV antibiotics and likely longer due to pos gram stain of bone. --PICC tomorrow --check Vanco trough and Cr tomorrow meds vancomycin 1.25gm IV q12, #1 Micro 01/23 Bone: gram stain rare GPC, Cx NGTD Path pending Subjective: feeling okay minimal pain no rash no diarrhea Objective: Vital Signs Temp Pulse Resp BP Pulse Ox 36.9 C 79 18 138/75 H 92 01/25/18 08:00 01/25/18 08:00 01/25/18 08:00 01/25/18 08:00 01/25/18 08:00 Microbiology 01/23/18 13:39 Gram Stain - Final Toe - Bone Laboratory Results 01/24/18 04:57 01/24/18 04:57 01/24/18 01/25/18 01/26/18 05:59 05:59 05:59 Intake Total 850 400 Output Total 1875 1400 Balance -1025 -1000 C-Reactive Protein 53.6 mg/L (<10.0) H 01/23/18 10:40 - Physical Exam General Appearance: alert, no apparent distress Respiratory: lungs clear, No accessory muscle use Neck: supple Cardiac/Chest: regular rate, rhythm, No systolic murmur Extremities: other (marked reduction in swelling LLE, wound vac in place lateral L foot, no erythema) Skin: warm/dry, No rash Neuro/Psych: alert, normal mood/affect, oriented x 3 - Time Spent With Patient Time Spent with Patient: greater than 25 minutes (Care coordinated with Dr. Mendez) Time Spent with Patient: Greater than 25 minutes spent on this patients care, greater than 50% of time spent counseling, educating, and coordinating care regarding the above mentioned plan. ICD10 Worksheet Patient Problems: Problems Problem Status Onset Knee pain, bilateral Acute Neurodegenerative disorder Acute
--- NOTE | 2018-01-25 20:36 | SOAPPROG ---
SOAP Progress Note Assessment/Plan: Assessment: STATUS POST 5TH TOE AMPUTATION AND ABSCESS DRAINAGE AFEBRILE/VITAL SIGNS STABLE/VAC IN PLACE/ANTIBIOTICS PER ID/NEED VERA FLOW STOPPED ON THE WOUND VAC WEAK PEDAL PULSES Plan: CONTINUE VAC THERAPY 01/24/18 12:17 01/24/18 14:43 01/25/18 20:35 WOUND NO CHANGE WITH WOUND VAC FUNCTION/STILL POOR PEDAL PULSES/COMFORTABLE/ AFEBRILE WILL CHECK ARCH STUDIES IN THE A.M. Objective: Vital Signs Temp Pulse Resp BP Pulse Ox 37.2 C 79 16 133/69 H 91 L 01/25/18 16:00 01/25/18 16:00 01/25/18 16:00 01/25/18 16:00 01/25/18 16:00 Microbiology 01/23/18 13:39 Gram Stain - Final Toe - Bone Laboratory Results 01/24/18 04:57 01/24/18 04:57 01/24/18 01/25/18 01/26/18 05:59 05:59 05:59 Intake Total 850 400 Output Total 9817 1400 Balance -1025 -1000 ICD10 Worksheet Patient Problems: Problems Problem Status Onset Knee pain, bilateral Acute Neurodegenerative disorder Acute
[2018-01-25] MEDS ORDERED: INSULIN GLARGINE 100 UNITS/ML UNIT SC SCH (21:00)
[2018-01-25] MEDS: Mirabegron [Myrbetriq] 50 MG PO SCH (22:19)
[2018-01-26] MEDS: VANCOMYCIN 1.25 GM in D5W 250 ML IV SCH (00:33)
[2018-01-26] MEDS ORDERED: METHOTREXATE 2.5 MG TAB PO SCH (07:00)
[2018-01-26] MEDS: INSULIN LISPRO 100 UNIT/ML SC SCH ×4 (08:59→22:25)
[2018-01-26] MEDS: LOSARTAN/HCTZ 50/12.5 1 TAB PO SCH (09:00)
[2018-01-26] MEDS: MULTIVITAMINS 1 EACH TAB PO SCH (09:01)
[2018-01-26] MEDS: amLODIPine BESYLATE 5 MG TAB PO SCH (09:02)
[2018-01-26] MEDS: GABAPENTIN 300 MG CAP PO SCH ×4 (09:02→22:22)
[2018-01-26] MEDS: FUROSEMIDE 40 MG TAB PO SCH (09:02)
[2018-01-26] MEDS: FOLIC ACID 1 MG TAB PO SCH (09:03)
[2018-01-26] MEDS ORDERED: PNEUMOC 13-VAL CONJ-DIP CRM/PF 0.5 ML SYR IM ONE (09:36)
[2018-01-26] MEDS: HYDROCODONE/APAP 5/325 TAB PO PRN ×2 (09:54→10:09)
--- NOTE | 2018-01-26 10:43 | SOAPPROG ---
SOAP Progress Note Assessment/Plan: Assessment/Plan: 67yo M POD#3 s/p amputation 5th toe and metatarsal head for grossly infected wound and osteomyelitis Wound vac dressing changed today - Veraflo, MWF ABIs poor flow, good PVR tracing. Will order CTA to further eval blood supply for wound healing IV antibiotics- appreciate ID Hospitalist management of comorbidities Dispo: continue inpt S: no complaints at this time. No pain. No fevers or chills. O: Lying in bed, comfortable, no acute distress No increased work of breathing Left lower extremity wound VAC to suction. Dressing removed. There is healthy granulation tissue in the majority of the wound bed, however there is an area of tunneling along the plantar fascia approximately 7 cm. This is irrigated with normal saline with clear return of fluid. Applied vera flow wound VAC. No surrounding erythema. Objective: Vital Signs Temp Pulse Resp BP Pulse Ox 36.6 C 74 16 136/75 H 96 01/26/18 08:00 01/26/18 08:00 01/26/18 08:00 01/26/18 08:00 01/26/18 08:00 Microbiology 01/23/18 13:39 Gram Stain - Final Toe - Bone Laboratory Results 01/24/18 04:57 01/24/18 04:57 01/25/18 01/26/18 01/27/18 05:59 05:59 05:59 Intake Total 400 Output Total 1400 375 Balance -1000 -375 ICD10 Worksheet Patient Problems: Problems Problem Status Onset Knee pain, bilateral Acute Neurodegenerative disorder Acute
[2018-01-26] MEDS ORDERED: IOPAMIDOL (ISOVUE-370) 150 ML BTL IV ONE (11:08)
[2018-01-26] MEDS: AMPICILLIN/SULBACTAM 3 GM in NS 100 ML IV SCH ×2 (12:16→17:58)
--- NOTE | 2018-01-26 12:34 | WOCRNPDOC ---
WOCRN Advanced Assessment Note - Skin Integrity Problem, Advanced Assess Left Fifth Toe Surgical Wound/Incision Dressing Type: Wound Vac, Other Other Dressing Type: Veraflo carter foam removed by Tracey HOLLAND Dressing Description: Clean/Dry, Intact Exudate Color: Reddish/Yellow Exudate Characteristic(s): Serosanguinous Integumentary Issue Intervention: Dressing Changed Candi Wound Tissue: Swollen Candi Wound Swelling: Moderate Wound Bed Color: Red Wound Bed Constitution: Granulation Tissue (30%), Tunneling (Tunnel is located in the middle of the wound. It extends 7.5 midline for 3cm, then toward 2 oclock for 5 more cm along plantar fascia), Bone (palpated in tunnel, in the area where the tunnel shifts from the midline toward 2 oclock along the plantar fascia), Subcutaneous Fat (70%) Site Measurement - Head-to-Toe Length X Width X Depth (cm): 6.3x4x1 Skin Integrity Problem Comment: Wound vac taken down by Tracey HOLLAND. Wound bed cleaned with normal saline and patted dry. Candi wound skin was prepped with skin prep and then mastisol. Drape was applied over it to protect the candi wound skin. Veraflo carter foam x4 pieces placed in wound, with one small non perforated carter piece cut and placed in the first 3 cm of the tunnel. Wound JUAN Cornejo was unable to further advance the foam into the tract that extended proximally toward 2:30, however the instillation should move with gravity into the remainder of the tunnel. One layer of perforated foam places over remainder of the open wound bed then covered to two pieces of carter non perforated foam to build up the wound bed and give a flat surface for trac pad to lie on. Wound vac set to suction -125mmHg. 8ml instillation of normal saline q3.5 hours for a dwell time of 8 minutes. Wound vac functioning without leaks during instillation and suction. Wound RN will round again Fri. It is not clear if wound care is actually managing the wound vac, so our involvment Friday is TBD. Vac tubing was also secured to the skin with a piece of foam placed underneath it to prevent pressure injuries. This will reduce the possiblity of the trac pad getting dislodged. Please continue this technique and resecure prn. Chantal MARTINEZ did the majority of the vac placement.
--- NOTE | 2018-01-26 13:46 | PCMIDPN ---
Assessment/Plan: Assessment/Plan: * Left 5th metatarsal osteomyelitis status post amputation and debridement with concomitant diabetic foot infection tracking to plantar fascia: Gram stain of bone shows GPCs with culture being no growth. Will resume Unasyn given no isolation of MRSA and to decrease risk of nephrotoxicity particularly with recent contrast administration for CT angiography. Modify antibiotics according to culture findings. Duration of at least 2 weeks with potential need for 6 weeks at bone margins are positive. 01/26/18 13:45 Subjective: Patient without specific complaints. Status post PICC placement and CT angiography to assess vascular supply. Objective: Vital Signs Temp Pulse Resp BP Pulse Ox 36.6 C 74 16 136/75 H 96 01/26/18 08:00 01/26/18 08:00 01/26/18 08:00 01/26/18 08:00 01/26/18 08:00 Microbiology 01/23/18 13:39 Gram Stain - Final Toe - Bone Laboratory Results 01/24/18 04:57 01/26/18 12:02 01/25/18 01/26/18 01/27/18 05:59 05:59 05:59 Intake Total 400 Output Total 1400 375 Balance -1000 -375 C-Reactive Protein 53.6 mg/L (<10.0) H 01/23/18 10:40 Vancomycin # 2 Bone Gram stain GPC, culture no growth to date - Physical Exam General Appearance: alert, no apparent distress EENT: No scleral icterus, No thrush, No conjunctival petechiae Respiratory: lungs clear, No respiratory distress Cardiac/Chest: regular rate, rhythm Extremities: inflammation (Left foot with wound VAC in place without surrounding cellulitis) Abdomen: non-tender, No distended ICD10 Worksheet Patient Problems: Problems Problem Status Onset Knee pain, bilateral Acute Neurodegenerative disorder Acute
--- NOTE | 2018-01-26 15:12 | HOSPPROG ---
Hospitalist Progress Note Assessment/Plan: 67 yo M w poorly controlled dm here pod 1 from wound debridement dm: sugars greater than goal but improved continue current plan add 8 of hs lantus a1c pending htn: continue home meds proph: rec lmwh pain: agree w gabapentin dispo: inpt Subjective: blood suagrs remain elevated Objective: Vital Signs Temp Pulse Resp BP Pulse Ox 36.6 C 74 16 136/75 H 96 01/26/18 08:00 01/26/18 08:00 01/26/18 08:00 01/26/18 08:00 01/26/18 08:00 Microbiology 01/23/18 13:39 Gram Stain - Final Toe - Bone Laboratory Results 01/24/18 04:57 01/26/18 12:02 01/25/18 01/26/18 01/27/18 05:59 05:59 05:59 Intake Total 400 Output Total 1400 375 Balance -1000 -375 - Physical Exam Constitutional: no apparent distress, appears nourished Eyes: PERRL, anicteric sclera Ears, Nose, Mouth, Throat: moist mucous membranes, hearing normal Cardiovascular: regular rate and rhythym, no murmur, rub, or gallop Respiratory: no respiratory distress, no rales or rhonchi Gastrointestinal: normoactive bowel sounds, soft, non-tender abdomen Genitourinary: no bladder fullness, No trejo in urethra Skin: warm, normal color Musculoskeletal: full muscle strength Neurologic: AAOx3, sensation intact bilaterally Psychiatric: interacting appropriately, not anxious Lymph, Heme, Immunologic: no cervical LAD ICD10 Worksheet Patient Problems: Problems Problem Status Onset Knee pain, bilateral Acute Neurodegenerative disorder Acute
--- NOTE | 2018-01-26 18:13 | SOAPPROG ---
FIGUEROA Progress Note Assessment/Plan: Assessment: CTA reviewed. Critical stenosis at LT mid SFA with decent runoff vessels. This is amendable to angioplasty in attempt to increase blood supply to LLE. Plan: 1. Made patient NPO after MN. 2. Patient scheduled for LLE runoff angiogram and [employer] tomorrow with DR. Warren. 01/26/18 18:11 Objective: Vital Signs Temp Pulse Resp BP Pulse Ox 36.7 C 62 16 127/69 H 92 01/26/18 15:42 01/26/18 15:42 01/26/18 15:42 01/26/18 15:42 01/26/18 15:42 Microbiology 01/23/18 13:39 Gram Stain - Final Toe - Bone Laboratory Results 01/24/18 04:57 01/26/18 12:02 01/25/18 01/26/18 01/27/18 05:59 05:59 05:59 Intake Total 400 Output Total 1400 375 525 Balance -1000 -375 -525 ICD10 Worksheet Patient Problems: Problems Problem Status Onset Knee pain, bilateral Acute Neurodegenerative disorder Acute
[2018-01-26] MEDS ORDERED: INSULIN GLARGINE 100 UNITS/ML UNIT SC SCH (21:00)
[2018-01-26] MEDS: Mirabegron [Myrbetriq] 50 MG PO SCH (22:27)
[2018-01-27] MEDS: AMPICILLIN/SULBACTAM 3 GM in NS 100 ML IV SCH ×5 (01:18→23:43)
[2018-01-27] MEDS ORDERED: ENOXAPARIN 40 MG/0.4 ML SYR SC SCH (09:00)
[2018-01-27] MEDS: FUROSEMIDE 40 MG TAB PO SCH (09:37)
[2018-01-27] MEDS: GABAPENTIN 300 MG CAP PO SCH ×4 (09:37→22:15)
[2018-01-27] MEDS: amLODIPine BESYLATE 5 MG TAB PO SCH (09:37)
[2018-01-27] MEDS: INSULIN LISPRO 100 UNIT/ML SC SCH ×4 (09:37→22:15)
[2018-01-27] MEDS: LOSARTAN/HCTZ 50/12.5 1 TAB PO SCH (09:38)
[2018-01-27] MEDS: MULTIVITAMINS 1 EACH TAB PO SCH (09:38)
[2018-01-27] MEDS: FOLIC ACID 1 MG TAB PO SCH (09:38)
[2018-01-27] MEDS ORDERED: INSULIN GLARGINE 100 UNITS/ML UNIT SC SCH (09:44)
--- NOTE | 2018-01-27 09:47 | HOSPPROG ---
Hospitalist Progress Note Assessment/Plan: # DM - gluc borderline low this am; A1c 9.1 - poor control - decr glargine to 10 HS - cont glipizide; hold metformin # osteo s/p amputation, polymicrobial - unasyn per ID - wound vac # PAD - plan for angioplasty today by IR - would benefit from asa/statin # htn - good control; cont amlodipine, clonidine, losartan/hctz # pain - gabapentin # polymyositis - mtx (holding) # dvt ppx - lovenox (holding today for angioplasty) Subjective: planning for angioplasty today; no diarrhea Objective: Vital Signs Temp Pulse Resp BP Pulse Ox 37.0 C 80 16 136/83 H 92 01/27/18 08:00 01/27/18 08:00 01/27/18 08:00 01/27/18 08:00 01/27/18 08:00 Microbiology 01/23/18 13:39 Gram Stain - Final Toe - Bone Laboratory Results 01/24/18 04:57 01/26/18 12:02 01/26/18 01/27/18 01/28/18 05:59 05:59 05:59 Intake Total 100 300 100 Output Total 375 1225 100 Balance -275 -925 0 chart reviewed CTA reviewed - Physical Exam Constitutional: no apparent distress, appears nourished Cardiovascular: regular rate and rhythym, no murmur, rub, or gallop, other ( occasional premature beats) Respiratory: no respiratory distress, no rales or rhonchi Gastrointestinal: soft, non-tender abdomen, no palpable masses, No guarding, No rebound, No distension ICD10 Worksheet Patient Problems: Problems Problem Status Onset Neurodegenerative disorder Acute Knee pain, bilateral Acute
[2018-01-27] MEDS ORDERED: HEPARIN 10,000 UNIT/10 ML MDV (1,000 UNIT/ML) IVP PRN (11:58)
[2018-01-27] MEDS ORDERED: FLUMAZENIL 0.5 MG/5 ML MDV IVP PRN (11:58)
[2018-01-27] MEDS ORDERED: NALOXONE HCL 0.4 MG/ML INJ IVP PRN (11:58)
[2018-01-27] MEDS ORDERED: PROTAMINE SULFATE 50 MG/5 ML VIAL IVP PRN (11:58)
[2018-01-27] MEDS ORDERED: fentaNYL 100 MCG/2 ML INJ IVP PRN (11:58)
[2018-01-27] MEDS ORDERED: MIDAZOLAM 2 MG/2 ML VIAL IVP PRN (11:58)
[2018-01-27] MEDS ORDERED: NS 1,000 ML IV SCH (12:00)
--- NOTE | 2018-01-27 12:18 | SOAPPROG ---
SOAP Progress Note Assessment/Plan: Assessment/Plan: 67yo M POD#4 s/p amputation 5th toe and metatarsal head for grossly infected wound and osteomyelitis Wound vac dressing changed today - Veraflo, change MWF CTA with 70% stenosis L SFA and multiple areas of L popliteal. To IR today for angioplasty IV antibiotics- appreciate ID Hospitalist management of comorbidities Dispo: continue inpt S: no complaints at this time. No pain. No fevers or chills. O: Sitting upright in chair, comfortable, no acute distress No increased work of breathing Left lower extremity wound VAC to suction, veraflo functioning. No surrounding erythema. Post-op shoe in place Objective: Vital Signs Temp Pulse Resp BP Pulse Ox 37.0 C 80 16 136/83 H 92 01/27/18 08:00 01/27/18 08:00 01/27/18 08:00 01/27/18 08:00 01/27/18 08:00 Microbiology 01/23/18 13:39 Gram Stain - Final Toe - Bone Laboratory Results 01/24/18 04:57 01/26/18 12:02 01/26/18 01/27/18 01/28/18 05:59 05:59 05:59 Intake Total 100 300 100 Output Total 375 1225 100 Balance -275 -925 0 ICD10 Worksheet Patient Problems: Problems Problem Status Onset Knee pain, bilateral Acute Neurodegenerative disorder Acute
[2018-01-27 12:27] LABS: INR 1.06 (0.83-1.16)
--- NOTE | 2018-01-27 13:32 | PCMIDPN ---
Assessment/Plan: Assessment/Plan: 1. left 5th MT OM: s/p 5th toe /mt amputation - bone GS with rare GPC, cx with prevotella, peptoniphlis -path pending - currently on unasyn. will continue for now wbc from several days ago at 11.5. recommend f/u check at somepoint creatinne stable -plan for two weeks therapy, longer if path positive. Subjective: afebrile. feeling better. denies sob, diarrhe. Objective: Vital Signs Temp Pulse Resp BP Pulse Ox 37.0 C 80 16 136/83 H 92 01/27/18 08:00 01/27/18 08:00 01/27/18 08:00 01/27/18 08:00 01/27/18 08:00 Microbiology 01/23/18 13:39 Gram Stain - Final Toe - Bone Laboratory Results 01/24/18 04:57 01/26/18 12:02 01/26/18 01/27/18 01/28/18 05:59 05:59 05:59 Intake Total 100 300 100 Output Total 375 1225 100 Balance -275 -925 0 C-Reactive Protein 53.6 mg/L (<10.0) H 01/23/18 10:40 - Physical Exam General Appearance: alert, no apparent distress Respiratory: lungs clear Cardiac/Chest: regular rate, rhythm Extremities: other (wound vac) Abdomen: normal bowel sounds, non-tender, soft, No distended Skin: other (chronic venous stasis dermatiis b/l leg) ICD10 Worksheet Patient Problems: Problems Problem Status Onset Knee pain, bilateral Acute Neurodegenerative disorder Acute
[2018-01-27] MEDS ORDERED: MIDAZOLAM 2 MG/2 ML VIAL ONE (13:42)
[2018-01-27] MEDS ORDERED: fentaNYL 100 MCG/2 ML INJ ONE (13:43)
--- NOTE | 2018-01-27 14:17 | PDPROPOC ---
Sedation Plan of Care ASA Classification: ASA 3 Planned drugs: fentanyl, midazolam Mallampati Score: Class 3 Mallampati Reference Image:
--- NOTE | 2018-01-27 14:19 | PDGENHP ---
History & Physical Chief Complaint: poor wound healing History of Present Illness: LLE foot wound healing poorly 2/2 CLI. Culprit lesion suspected at SFA ~90% stenosis. Relevant Physical Exam: intact pulses in feet and groin. wound vac noted. Cardiorespiratory Assessment: RRR, nl Wob
[2018-01-27] MEDS ORDERED: IOPAMIDOL (ISOVUE-370) 150 ML BTL IV ONE (14:31)
[2018-01-27] MEDS ORDERED: IOPAMIDOL (ISOVUE-300) 100 ML BTL ONE (14:31)
[2018-01-27] MEDS ORDERED: HEPARIN 10,000 UNIT/10 ML MDV (1,000 UNIT/ML) ONE (15:12)
[2018-01-27] MEDS ORDERED: PROTAMINE SULFATE 50 MG/5 ML VIAL IVP ONE (16:15)
--- NOTE | 2018-01-27 16:48 | PDRADPN ---
Radiology Procedure Note Date of Procedure: 01/27/18 Radiologist: Jaden Warren Anesthesia: IV Sedation Pre-op Diagnosis: CLI Post-op Diagnosis: same Indication: poor wound healing, known L SFA stenosis Procedure: LLE angiography with SFA plasty Finding(s): significantly improved luminal profile after 5mm and 6mm angioplasty Inf/Abcess present in the surg proc area at time of surgery?: No EBL: 30 Complications: none apparent
--- NOTE | 2018-01-27 16:55 | ASMTCMCOM ---
CM Note CM Note Notes: CM met w/ pt for dispo planning. PT is recommending SNF. Pt is agreeable to going to [facility]. Pt will most likely require ivabx and wound vac at time of d/c. CM spoke w/ pts brother Amor and gave him updates. CM sent the referral to [facility] and completed the non triggering pasrr. CM to follow. Plan: [facility] Date Signed: 01/27/2018 04:54 PM Electronically Signed By:JOVI Lam
[2018-01-27] MEDS: INSULIN GLARGINE 100 UNITS/ML UNIT SC SCH (22:15)
[2018-01-27] MEDS: Mirabegron [Myrbetriq] 50 MG PO SCH (22:16)
[2018-01-28] MEDS: AMPICILLIN/SULBACTAM 3 GM in NS 100 ML IV SCH ×4 (05:01→23:19)
[2018-01-28] MEDS: INSULIN LISPRO 100 UNIT/ML SC SCH ×5 (09:13→21:22)
[2018-01-28] MEDS: LOSARTAN/HCTZ 50/12.5 1 TAB PO SCH (09:58)
[2018-01-28] MEDS: amLODIPine BESYLATE 5 MG TAB PO SCH (10:02)
[2018-01-28] MEDS: FOLIC ACID 1 MG TAB PO SCH (10:02)
[2018-01-28] MEDS: GABAPENTIN 300 MG CAP PO SCH ×4 (10:03→21:21)
[2018-01-28] MEDS: FUROSEMIDE 40 MG TAB PO SCH (10:04)
[2018-01-28] MEDS: MULTIVITAMINS 1 EACH TAB PO SCH (10:04)
--- NOTE | 2018-01-28 10:38 | SOAPPROG ---
SOAP Progress Note Assessment/Plan: Assessment/Plan: 67yo M POD#5 s/p amputation 5th toe and metatarsal head for grossly infected wound and osteomyelitis Wound vac dressing changed today - amniofill placed under vac - this stays in place x 1 week! S/p angioplasty of L SFA yesterday for 90% stenosis IV antibiotics x 2 weeks min- appreciate ID Hospitalist management of comorbidities Dispo: DC to SNF today, awaiting wound vac from [facility] S: no complaints at this time. No pain. No fevers or chills. O: laying in bed, comfortable, no acute distress No increased work of breathing Wound with healthy granulation tissue - tunneling 5.5cm (smaller) no purulence or surrounding erythema Objective: Vital Signs Temp Pulse Resp BP Pulse Ox 36.6 C 73 16 149/76 H 89 L 01/28/18 04:00 01/28/18 04:00 01/28/18 08:00 01/28/18 09:58 01/28/18 08:00 Microbiology 01/23/18 13:39 Gram Stain - Final Toe - Bone Laboratory Results 01/24/18 04:57 01/26/18 12:02 01/27/18 01/28/18 01/29/18 05:59 05:59 05:59 Intake Total 300 1090 Output Total 1225 850 Balance -925 240 PT 14.0 SEC (12.0-15.0) 01/27/18 12:00 INR 1.06 (0.83-1.16) 01/27/18 12:00 ICD10 Worksheet Patient Problems: Problems Problem Status Onset Knee pain, bilateral Acute Neurodegenerative disorder Acute
[2018-01-28] MEDS: HYDROCODONE/APAP 5/325 TAB PO PRN (10:39)
[2018-01-28] MEDS ORDERED: NITROGLYCERIN/D5W 50 MG/250 ML BOTTLE IV ONE (10:44)
--- NOTE | 2018-01-28 10:51 | PDIAF ---
- Diagnosis Diagnosis: LLE DFU, PVD Code Status: Full Code - Medication Management Discharge Medications: Medications to Continue on Transfer Multivitamins [Multivitamin (*)] 1 each PO DAILY 02/17/14 [Last Taken 01/22/18] Testosterone IM [Testosterone 100mg/ml IM inj (*)] 250 mg IM Q21D 02/17/14 [ Last Taken 01/02/18] metFORMIN HCL [Glucophage 500 mg (*)] 1,000 mg PO BIDMEAL 02/17/14 [Last Taken 01/22/18] Gabapentin [Neurontin 300 MG (*)] 300 mg PO TID@,12/30/17 [Last Taken ] Methotrexate Sodium [Rheumatrex] 7.5 mg PO MO@0700 12/30/17 [Last Taken 01/18/18 ] amLODIPine BESYLATE [Norvasc 5 mg (*)] 5 mg PO DAILY 12/30/17 [Last Taken 06:00] Folic Acid [Folic Acid 1 MG (*)] 1 mg PO DAILY 01/20/18 [Last Taken 01/22/18] Furosemide [Lasix 40 MG (*)] 40 mg PO DAILY 01/20/18 [Last Taken 01/21/18] Gabapentin [Neurontin 300 MG (*)] 300 - 600 mg PO HS 01/20/18 [Last Taken ] Herbals/Supplements -Info Only 1 ea PO DAILY 01/20/18 [Last Taken 01/22/18] Losartan/Hydrochlorothiazide [Losartan-Hctz 100-25 mg Tab] 1 each PO DAILY 01/20 [Last Taken 01/22/18] clonIDINE [Catapres (*)] 0.1 mg PO BID 01/20/18 [Last Taken 01/23/18 06:00] Mirabegron [Myrbetriq] 50 mg PO HS 01/24/18 [Last Taken Unknown] Ampicillin/Sulbactam [Unasyn] 3 gm IV Q6HRS #0 vial 01/28/18 [Last Taken Unknown ] Aspirin [Aspirin 81mg (*)] 81 mg PO DAILY #30 tab 01/28/18 [Last Taken Unknown] Insulin Glargine [Lantus Syringe] 10 units SC HS unit 01/28/18 [Last Taken Unknown] Rosuvastatin Calcium [Crestor] 10 mg PO DAILY #30 tablet 01/28/18 [Last Taken Unknown] Fpc Antibiotics: Unasyn Fpc Antibiotic Stop Date: 02/06/18 Discharge Medications: Refer to the Discharge Home Medication list for PRN reason. - Orders Services needed: Home Care, Registered Nurse, Certified Vice Squad Police Officer, Master Visiting Teacher, Physical Therapy, Occupational Therapy Home Care Face to Face: I certify that this patient was under my care and that I had the required [id number] encounter meeting the encounter requirements on the discharge day. My findings support the fact that the patient is homebound as defined in Home Care Face to Face Continued: CMS Chapter 7 Medicare Benefits Manual 30.1.1 , The condition of the patient is such that there exists a normal inability to leave home and consequently, leaving home would require a considerable and taxing effort. Isolation Type: None Diet Recommendation: no restrictions on diet, ADA 2000 consistent carb Diet Texture: Regular Texture Diet Wound Care Instructions: wound vac to continuous suction until FU appt with Dr. gray on friday. do not change dressing Activity/Weight Bearing Restrictions: post op shoe when ambulating Additional Instructions: HOLD METFORMIN UNTIL Friday01/31/18, THEN RESUME SNF with wound vac. Wound vac will be on continuously until FU appt with Dr. Gray. Amniofill under vac (very expensive). FU with Dr. Gray at her office on Friday - call to make appt IV antibiotics x 2 weeks minimum per ID Call with worsening symptoms, questions or concerns - Follow Up Care Current Providers and Referrals: Ta Cobb MD [Primary Care Provider] - Alexandra Gray MD [Medical Doctor] - 02/03/18 Latrice Benavidez PAC [Physician Event Operations Manager] - (1-2 weeks for testosterone injection)
--- NOTE | 2018-01-28 10:55 | HOSPPROG ---
Hospitalist Progress Note Assessment/Plan: # DM - A1c 9.1 - overall poor control; i think he will benefit from insulin at this point given his PAD and need for amputation - cont glargine at 10U HS - this will need to be titrated further as outpatient; should follow up with Dr Cobb - check QAM and QAC glucs - hold glipizide since starting insulin - restart metformin 72 hours after contrast (this Sat) # PAD s/p SFA angioplasty - recommend asa 81mg and crestor 10mg # osteo s/p amputation, polymicrobial; angioplasty yesterday - unasyn per ID # htn - good control; cont amlodipine, clonidine, losartan/hctz # pain - gabapentin # 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 - outpatient follow up with urology for injection # dvt ppx - lovenox (holding today for angioplasty) Subjective: discussed using insulin for his diabetes Objective: Vital Signs Temp Pulse Resp BP Pulse Ox 36.6 C 73 16 149/76 H 89 L 01/28/18 04:00 01/28/18 04:00 01/28/18 08:00 01/28/18 09:58 01/28/18 08:00 Microbiology 01/23/18 13:39 Gram Stain - Final Toe - Bone Laboratory Results 01/24/18 04:57 01/26/18 12:02 01/27/18 01/28/18 01/29/18 05:59 05:59 05:59 Intake Total 300 1090 Output Total 1225 850 Balance -925 240 PT 14.0 SEC (12.0-15.0) 01/27/18 12:00 INR 1.06 (0.83-1.16) 01/27/18 12:00 - Time Spent With Patient Time Spent with Patient: greater than 25 minutes Time Spent with Patient: Greater than 25 minutes spent on this patients care, greater than 50% of time spent counseling, educating, and coordinating care regarding the above mentioned plan. - Physical Exam Constitutional: no apparent distress, appears nourished ICD10 Worksheet Patient Problems: Problems Problem Status Onset Knee pain, bilateral Acute Neurodegenerative disorder Acute
--- NOTE | 2018-01-28 13:28 | WOCRNPDOC ---
WOCRN Advanced Assessment Note - Skin Integrity Problem, Advanced Assess Left Fifth Toe Surgical Wound/Incision Dressing Type: Open to Air (vac removed by Dr. Presley ) Dressing Description: Clean/Dry Exudate Amount: Scant Exudate Characteristic(s): Serosanguinous Integumentary Issue Intervention: Dressing Applied Dalton Wound Tissue: Erythema (mild) Dalton Wound Swelling: Mild Wound Bed Color: Red, Yellow Wound Bed Constitution: Granulation Tissue (40%), Smooth Tissue (30%), Red/[place] - Non Granular Tissue (30%), Tunneling (6.5 cm toward midline and along plantar fascial plane toward 2 oclock) Wound Edges: Attached Skin Integrity Problem Comment: Cleaned with ns and gauze. Skin prep dalton wound. Draped dalton wound. 250 mg amniofill skin tissue substitute applied into tunnel after mixing with ns and then applied to wound bed. One piece of white foam placed into tunnel (approximately 5 cm of foam placed) with amniofill in it. 3 pieces of small black simplace foam placed over and around the remainder of the amniofill in the wound bed. One piece was a trac landing pad. Vac restarted at - 125 mm Hg DPC with a 6 min rise and 2 min fall. Vac working with no leaks. Ulises students in room for care.
--- NOTE | 2018-01-28 16:10 | CPIP ---
[f rep st] INVASIVE CARDIAC PROCEDURE DATE OF PROCEDURE: 01/26/2018 On 01/26/2018 patient was seen for arterial studies, status post left foot abscess with gangrenous to es. His KAVITHA on the right is 0.94 with good full PVR tracings down to the digital level. On the left s guicho, he has an ankle-brachial index of only 0.6, although he does have pulsatile PVR tracings. IMPRESSION: Tracings are much better than his ABIs, but this would suggest the possibility of a supe rficial femoral artery stenosis. Since he is facing a limb loss and tissue loss problems, I would rec ommend a CT angiogram to evaluate for possible angioplasty or bypass if necessary. /[id number]/MODL
--- NOTE | 2018-01-28 16:29 | PCMIDPN ---
Assessment/Plan: Assessment/Plan: * Left 5th metatarsal osteomyelitis status post amputation and debridement with concomitant diabetic foot infection tracking to plantar fascia: Cultures with growth of Peptoniphilus and Prevotella. Organism should be well covered by Unasyn. Plan Unasyn with duration between 2 and 6 weeks depending on bone margins although likely to be more inclined toward longer duration based on positive Gram stain and tracking in plantar space. Tolerating Unasyn well to date. Likely transition to assisted facility tomorrow. Plan weekly laboratory monitoring while on Unasyn. 01/28/18 16:26 01/28/18 16:26 Subjective: Patient without specific complaints. No diarrhea or rash. Objective: Vital Signs Temp Pulse Resp BP Pulse Ox 37.2 C 89 16 129/64 H 89 L 01/28/18 16:17 01/28/18 16:17 01/28/18 08:00 01/28/18 16:17 01/28/18 08:00 Microbiology 01/23/18 13:39 Gram Stain - Final Toe - Bone Laboratory Results 01/24/18 04:57 01/26/18 12:02 01/27/18 01/28/18 01/29/18 05:59 05:59 05:59 Intake Total 300 1090 Output Total 1225 850 450 Balance -925 240 -450 C-Reactive Protein 53.6 mg/L (<10.0) H 01/23/18 10:40 Unasyn # 2 Cultures with growth of Peptoniphilus and Prevotella - Physical Exam General Appearance: alert, no apparent distress EENT: No scleral icterus, No thrush Extremities: inflammation (Left foot with wound VAC in place; no surrounding cellulitis; venous insufficiency changes with significantly continuous linter drier operator appearance anterior shins bilaterally) Abdomen: non-tender, No distended - Line/s LUE PICC Lines: No drainage, No erythema ICD10 Worksheet Patient Problems: Problems Problem Status Onset Knee pain, bilateral Acute Neurodegenerative disorder Acute
--- NOTE | 2018-01-28 16:33 | PDIAF ---
- Diagnosis Diagnosis: LLE DFU, PVD Code Status: Full Code - Medication Management Discharge Medications: Medications to Continue on Transfer Multivitamins [Multivitamin (*)] 1 each PO DAILY 02/17/14 [Last Taken 01/22/18] Testosterone IM [Testosterone 100mg/ml IM inj (*)] 250 mg IM Q21D 02/17/14 [ Last Taken 01/02/18] metFORMIN HCL [Glucophage 500 mg (*)] 1,000 mg PO BIDMEAL 02/17/14 [Last Taken 01/22/18] Gabapentin [Neurontin 300 MG (*)] 300 mg PO TID@,12/30/17 [Last Taken ] Methotrexate Sodium [Rheumatrex] 7.5 mg PO MO@0700 12/30/17 [Last Taken 01/18/18 ] amLODIPine BESYLATE [Norvasc 5 mg (*)] 5 mg PO DAILY 12/30/17 [Last Taken 06:00] Folic Acid [Folic Acid 1 MG (*)] 1 mg PO DAILY 01/20/18 [Last Taken 01/22/18] Furosemide [Lasix 40 MG (*)] 40 mg PO DAILY 01/20/18 [Last Taken 01/21/18] Gabapentin [Neurontin 300 MG (*)] 300 - 600 mg PO HS 01/20/18 [Last Taken ] Herbals/Supplements -Info Only 1 ea PO DAILY 01/20/18 [Last Taken 01/22/18] Losartan/Hydrochlorothiazide [Losartan-Hctz 100-25 mg Tab] 1 each PO DAILY 01/20 [Last Taken 01/22/18] clonIDINE [Catapres (*)] 0.1 mg PO BID 01/20/18 [Last Taken 01/23/18 06:00] Mirabegron [Myrbetriq] 50 mg PO HS 01/24/18 [Last Taken Unknown] Ampicillin/Sulbactam [Unasyn] 3 gm IV Q6HRS #0 vial 01/28/18 [Last Taken Unknown ] Aspirin [Aspirin 81mg (*)] 81 mg PO DAILY #30 tab 01/28/18 [Last Taken Unknown] Hydrocodone/APAP 5/325 [[place] 5/325 (*)] 1 - 2 tab PO Q4 PRN tab 01/28/18 [ Last Taken Unknown] Insulin Glargine [Lantus Syringe] 10 units SC HS unit 01/28/18 [Last Taken Unknown] Rosuvastatin Calcium [Crestor] 10 mg PO DAILY #30 tablet 01/28/18 [Last Taken Unknown] Longterm Antibiotics: Unasyn 3 g IV Q 6 hr Fibre Technologist Antibiotic Stop Date: 03/06/18 Discharge Medications: Refer to the Discharge Home Medication list for PRN reason. PICC Care - Routine: Yes - Orders Services needed: Home Care, Registered Nurse, Certified Decontamination Worker, Master Client Analyst, Physical Therapy, Occupational Therapy Home Care Face to Face: I certify that this patient was under my care and that I had the required [id number] encounter meeting the encounter requirements on the discharge day. My findings support the fact that the patient is homebound as defined in Home Care Face to Face Continued: CMS Chapter 7 Medicare Benefits Manual 30.1.1 , The condition of the patient is such that there exists a normal inability to leave home and consequently, leaving home would require a considerable and taxing effort. Isolation Type: None Diet Recommendation: no restrictions on diet, ADA 2000 consistent carb Diet Texture: Regular Texture Diet Wound Care Instructions: wound vac to continuous suction until FU appt with Dr. presley on friday. do not change dressing Activity/Weight Bearing Restrictions: post op shoe when ambulating Additional Instructions: HOLD METFORMIN UNTIL Friday01/31/18, THEN RESUME SNF with wound vac. Settings: - 125 mm Hg Continuous Wound vac will be on continuously until FU appt with Dr. Presley. Amniofill under vac (very expensive). FU with Dr. Presley at her office on Friday - call to make appt IV antibiotics x 2 weeks minimum per ID Call with worsening symptoms, questions or concerns - Labs/Radiology CBC w/diff Date: 02/05/18 (Weekly Q ) CMP Date: 02/05/18 (Weekly Q ) Call or Fax Lab and Imaging Results to: Dr. Turcios, - Follow Up Care Current Providers and Referrals: Ta Cobb MD [Primary Care Provider] - Alexandra Presley MD [Medical Doctor] - 02/03/18 Latrice Benavidez PAC [Physician Slip Tender] - (1-2 weeks for testosterone injection) Elin Turcios MD [Medical Doctor] - 02/06/18 11:30 am
[2018-01-28] MEDS: INSULIN GLARGINE 100 UNITS/ML UNIT SC SCH (21:21)
[2018-01-28] MEDS: Mirabegron [Myrbetriq] 50 MG PO SCH (21:22)
[2018-01-29] MEDS: AMPICILLIN/SULBACTAM 3 GM in NS 100 ML IV SCH ×2 (05:06→11:56)
[2018-01-29 05:34] LABS: PLATELET COUNT 322 10^3/uL (150-400)
--- NOTE | 2018-01-29 08:56 | SOAPPROG ---
SOAP Progress Note Assessment/Plan: Assessment: Assessment/Plan: 67yo M POD#5 s/p amputation 5th toe and metatarsal head for grossly infected wound and osteomyelitis S/p angioplasty of L SFA for 90% stenosis IV antibiotics x 2-6 weeks- appreciate ID. They are leaning towards a longer course depending on pathology and because it tracked by fascia DC to SNF with wound vac. Next wound vac change on 02/04/[address] I will see him in my office on 02/03/2018 S: without complaints O: laying in bed, comfortable, no increased work of breathing Wound vac to suction without overt signs of infection 01/23/18 17:25 01/29/18 08:54 01/29/18 10:51 Objective: Vital Signs Temp Pulse Resp BP Pulse Ox 37.1 C 97 12 144/74 H 95 01/29/18 08:00 01/29/18 08:00 01/29/18 08:00 01/29/18 08:00 01/29/18 08:00 Microbiology 01/23/18 13:39 Gram Stain - Final Toe - Bone Laboratory Results 01/29/18 05:04 01/28/18 17:55 01/28/18 01/29/18 01/30/18 05:59 05:59 05:59 Intake Total 1090 Output Total 850 450 Balance 240 -450 PT 14.0 SEC (12.0-15.0) 01/27/18 12:00 INR 1.06 (0.83-1.16) 01/27/18 12:00 ICD10 Worksheet Patient Problems: Problems Problem Status Onset Knee pain, bilateral Acute Neurodegenerative disorder Acute
[2018-01-29] MEDS: INSULIN LISPRO 100 UNIT/ML SC SCH (09:01)
--- NOTE | 2018-01-29 09:27 | GDS ---
[f rep st] DISCHARGE SUMMARY Date of Admission 01/23/2018 Date of Discharge 01/29/2018 ADMITTING DIAGNOSIS: Left 5th toe diabetic foot wound. SECONDARY DIAGNOSES: Type 2 diabetes, hyperlipidemia, hypertension, and neuropathy. REASON FOR ADMISSION: This is a very pleasant 67-year-old male, well known [facility] for diabetic foot ulcers and wound care. He was admitted for surgical intervention, pain control, and observation. HOSPITAL COURSE: The patient was taken to surgery on 01/23/[address] Alexandra Presley for left 5th toe and metatarsal head amputation with debridement of skin. At the time of operation, the wound was noted to track on the plantars fascia which was not anticipated pre-operatively. VeraFlo was in place. Infectious Disease has been consulted, as well as hospitalist services for management of comorbid conditions. Postop day #4, CTA shows 70% left SFA stenosis, multiple areas in the left popliteal and single-vessel to the left foot. Postop day #5, angioplasty done of the left SFA for by Dr. Jaden Warren. He recovered well from the procedure. We discontinued veraflo on 01/28/2018 and applied amniofill under the standard vac. CONDITION ON DISCHARGE: The patient will be transferred to [facility] today in stable condition. DISCHARGE MEDICATIONS: The patient has been instructed to resume all home medications. Please see EMR for further details, with 1 exception, to hold metformin until 01/31/2018. DISCHARGE INSTRUCTIONS: Hold metformin until 01/31/2018. He will resume at SNF with wound VAC at that time. He will have the wound VAC in place until he follows up with Dr. Presley on Friday. IV antibiotics per ID recommendations. He will call with any worsening symptoms, questions or concerns. /[id number]/MODL MTDD
--- NOTE | 2018-01-29 09:33 | PDIAF ---
- Diagnosis Diagnosis: LLE DFU, PVD Code Status: Full Code - Medication Management Discharge Medications: Medications to Continue on Transfer Multivitamins [Multivitamin (*)] 1 each PO DAILY 02/17/14 [Last Taken 01/22/18] Testosterone IM [Testosterone 100mg/ml IM inj (*)] 250 mg IM Q21D 02/17/14 [ Last Taken 01/02/18] metFORMIN HCL [Glucophage 500 mg (*)] 1,000 mg PO BIDMEAL 02/17/14 [Last Taken 01/22/18] Gabapentin [Neurontin 300 MG (*)] 300 mg PO TID@,12/30/17 [Last Taken ] Methotrexate Sodium [Rheumatrex] 7.5 mg PO MO@0700 12/30/17 [Last Taken 01/18/18 ] amLODIPine BESYLATE [Norvasc 5 mg (*)] 5 mg PO DAILY 12/30/17 [Last Taken 06:00] Folic Acid [Folic Acid 1 MG (*)] 1 mg PO DAILY 01/20/18 [Last Taken 01/22/18] Furosemide [Lasix 40 MG (*)] 40 mg PO DAILY 01/20/18 [Last Taken 01/21/18] Gabapentin [Neurontin 300 MG (*)] 300 - 600 mg PO HS 01/20/18 [Last Taken ] Herbals/Supplements -Info Only 1 ea PO DAILY 01/20/18 [Last Taken 01/22/18] Losartan/Hydrochlorothiazide [Losartan-Hctz 100-25 mg Tab] 1 each PO DAILY 01/20 [Last Taken 01/22/18] clonIDINE [Catapres (*)] 0.1 mg PO BID 01/20/18 [Last Taken 01/23/18 06:00] Mirabegron [Myrbetriq] 50 mg PO HS 01/24/18 [Last Taken Unknown] Ampicillin/Sulbactam [Unasyn] 3 gm IV Q6HRS #0 vial 01/28/18 [Last Taken Unknown ] Aspirin [Aspirin 81mg (*)] 81 mg PO DAILY #30 tab 01/28/18 [Last Taken Unknown] Hydrocodone/APAP 5/325 [[place] 5/325 (*)] 1 - 2 tab PO Q4 PRN tab 01/28/18 [ Last Taken Unknown] Insulin Glargine [Lantus Syringe] 10 units SC HS unit 01/28/18 [Last Taken Unknown] Rosuvastatin Calcium [Crestor] 10 mg PO DAILY #30 tablet 01/28/18 [Last Taken Unknown] Group Home Antibiotics: Unasyn 3 g IV Q 6 hr Change Management Expert Antibiotic Stop Date: 03/06/18 Discharge Medications: Refer to the Discharge Home Medication list for PRN reason. PICC Care - Routine: Yes - Orders Services needed: Registered Nurse, Certified Sticker Hand, Master Tie Layer , Physical Therapy, Occupational Therapy Isolation Type: None Diet Recommendation: no restrictions on diet, ADA 2000 consistent carb Diet Texture: Regular Texture Diet Wound Care Instructions: wound vac to continuous suction until FU appt with Dr. presley on friday. do not change dressing Activity/Weight Bearing Restrictions: post op shoe when ambulating Additional Instructions: HOLD METFORMIN UNTIL Friday01/31/18, THEN RESUME SNF with wound vac. Settings: - 125 mm Hg Continuous Wound vac will be on continuously until FU appt with Dr. Presley. Amniofill under vac (very expensive). FU with Dr. Presley at her office on Friday - call to make appt IV antibiotics x 2 weeks minimum per ID Call with worsening symptoms, questions or concerns - Labs/Radiology CBC w/diff Date: 02/05/18 (Weekly Q ) CMP Date: 02/05/18 (Weekly Q ) Call or Fax Lab and Imaging Results to: Dr. Turcios, - Follow Up Care Current Providers and Referrals: Ta Cobb MD [Primary Care Provider] - Alexandra Presley MD [Medical Doctor] - 02/03/18 () Elin Turcios MD [Medical Doctor] - 02/06/18 11:30 am Latrice Benavdiez PAC [Physician Boiler House Inspector] - (1-2 weeks for testosterone injection)
--- NOTE | 2018-01-29 09:33 | HOSPPROG ---
Hospitalist Progress Note Assessment/Plan: # DM - A1c 9.1 - overall poor control; i think he will benefit from insulin at this point given his PAD and need for amputation - cont glargine at 10U HS - this will need to be titrated further as outpatient; will need pre-meal insulin; should follow up with Dr Cobb - check QAM and QAC glucs - hold glipizide since starting insulin - restart metformin 72 hours after contrast (this Sat) # PAD s/p SFA angioplasty - recommend asa 81mg and crestor 10mg # osteo s/p amputation, polymicrobial; angioplasty yesterday - unasyn per ID # htn - good control; cont amlodipine, clonidine, losartan/hctz # pain - gabapentin # 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 - outpatient follow up with urology for injection # dvt ppx - lovenox Subjective: no complaints; no diarrhea Objective: Vital Signs Temp Pulse Resp BP Pulse Ox 37.1 C 97 12 144/74 H 95 01/29/18 08:00 01/29/18 08:00 01/29/18 08:00 01/29/18 08:00 01/29/18 08:00 Microbiology 01/23/18 13:39 Gram Stain - Final Toe - Bone Laboratory Results 01/29/18 05:04 01/28/18 17:55 01/28/18 01/29/18 01/30/18 05:59 05:59 05:59 Intake Total 1090 Output Total 850 450 Balance 240 -450 PT 14.0 SEC (12.0-15.0) 01/27/18 12:00 INR 1.06 (0.83-1.16) 01/27/18 12:00 - Physical Exam Constitutional: no apparent distress, appears nourished Cardiovascular: regular rate and rhythym, no murmur, rub, or gallop Respiratory: no respiratory distress, no rales or rhonchi Gastrointestinal: normoactive bowel sounds, soft, non-tender abdomen, no palpable masses ICD10 Worksheet Patient Problems: Problems Problem Status Onset Neurodegenerative disorder Acute Knee pain, bilateral Acute
[2018-01-29] MEDS: LOSARTAN/HCTZ 50/12.5 1 TAB PO SCH (09:47)
[2018-01-29] MEDS: MULTIVITAMINS 1 EACH TAB PO SCH (09:48)
[2018-01-29] MEDS: FOLIC ACID 1 MG TAB PO SCH (09:51)
[2018-01-29] MEDS: FUROSEMIDE 40 MG TAB PO SCH (09:51)
[2018-01-29] MEDS: GABAPENTIN 300 MG CAP PO SCH ×2 (09:51→12:18)
[2018-01-29] MEDS: amLODIPine BESYLATE 5 MG TAB PO SCH (09:52)
--- NOTE | 2018-01-29 10:02 | ASMTCMCOM ---
CM Note CM Note Notes: Spoke w/Inez at , notified her of dc and that pt's IV abx were extended to 03/06. Date Signed: 01/29/2018 10:01 AM Electronically Signed By:Beverly Desai RN
--- NOTE | 2018-01-29 10:03 | ASMTLACE ---
LACE Length of stay for Answers: 4-6 days current admission Acuity / Level of Answers: Yes Care: Did the patient have an inpatient admission? Comorbidities - select Answers: Diabetes (uncontrolled or all that apply controlled) Other Notes: hyperlipidemia, HTN, ne uro edi # of Emergency department Answers: 0 visits in the last 6 months Score: 9 Date Signed: 01/29/2018 10:03 AM Electronically Signed By:Beverly Desai RN
[2018-01-29 11:28] VITALS: BP 139/76
--- NOTE | 2018-01-29 13:52 | ASDISCHSUM ---
Discharge Information Plan Status:SNF Medically Cleared to Leave: Discharge Date:01/29/2018 12:50 PM CM D/C Disposition:Halfway Facility ADT D/C Disposition:Halfway Facility Projected Discharge Date:01/29/2018 11:00 AM Transportation at D/C:Wheelchair Van Discharge Delay Reason: Follow-Up Date:01/29/2018 11:00 AM Discharge Slot: Final Diagnosis: Placement Information Referral Type:*Prison/SNF Referral ID:[id number] Provider Name:[facility] Address 1:[address] Address 2: City:[place] Selection Factors: State:[place] Patient Contact Information Contact Name:PAUL Relationship: Address:[address] [address] Work Phone: City:[place] Alternate Phone: [facility]/Zip Code:[place] [address] Email: Financial Information Financial Class:Medicare Primary Plan Desc:MEDICARE INPATIENT Primary Plan Number:[id number] Secondary Plan Desc:MED[place] Secondary Plan Number:[id number] Assessment Information [facility] CM Progress Note CM Note CM Note Notes: Michelle with [facility] reports they are open on pt for RN. Date Signed: 01/23/2018 02:57 PM Electronically Signed By:YANA Carr WALTERE LACStiven Length of stay for Answers: 4-6 days current admission Acuity / Level of Answers: Yes Care: Did the patient have an inpatient admission? Comorbidities - select Answers: Diabetes (uncontrolled or all that apply controlled) Other Notes: hyperlipidemia, HTN, ne uro edi # of Emergency department Answers: 0 visits in the last 6 months Score: 9 Date Signed: 01/29/2018 10:03 AM Electronically Signed By:Beverly Desai RN [facility] CM Progress Note CM Note CM Note Notes: S/p 5th toe amputation & abscess drainage w/wound vac placement. Pt current with [facility] for RN services. PT recommending SNF. OT ordered; awaiting eval. CM will follow. Dc plan-TBD Date Signed: 01/25/2018 02:30 PM Electronically Signed By:Sarai Dyer RN [facility] CM Progress Note CM Note CM Note Notes: CM met w/ pt for dispo planning. PT is recommending SNF. Pt is agreeable to going to [facility]. Pt will most likely require ivabx and wound vac at time of d/c. CM spoke w/ pts brother Amor and gave him updates. CM sent the referral to [facility] and completed the non triggering pasrr. CM to follow. Plan: [facility] Date Signed: 01/27/2018 04:54 PM Electronically Signed By:JOVI Lam [facility] CM Progress Note CM Note CM Note Notes: Maria Antonia Ledesma at , notified her of dc and that pt's IV abx were extended to 03/06. Date Signed: 01/29/2018 10:01 AM Electronically Signed By:Beverly Desai RN Case Management Discharge Plan Note Case Management Discharge Discharge Order Complete? Answers: Yes Patient to Obtain Answers: Other Notes: [facility] Medications Transportation Arranged Answers: Other Notes: [employer] [facility] will Pick (Date 01/29/2018 12:30 PM & Time) Faxed Final Orders Answers: Yes Agency/Facility Transfer Answers: Yes Report Printed & Faxed to Receiving Agency Family Notified Answers: Yes Discharge Comments Notes: Lisandra/shiva MCCRAY, final orders faxed. Inez at notified, RN to call report Date Signed: 01/29/2018 10:04 AM Electronically Signed By:Beverly Desai RN Intervention Information Intervention Type:*IM-Signed Date of Service:01/29/2018 10:52 AM Patient Type:Inpatient Staff Member:Aniyah Adame Hours: Discipline: Severity: Comment:
== END 2018-01-29 12:50 | DRG 617 ==
LOC: OBSVTOIN 09:58 → F3N 09:58 → F3E 16:01
PROVIDERS: ADMIT Surgery; ATTEND Surgery
PROC: 0Y6Y0Z0 Detachment at Left 5th Toe, Complete, Open Approach (ICD-10-PCS; principal; 2018-01-23 11:30)
PROC: 02HV33Z Insertion of Infusion Device into Superior Vena Cava, Percutaneous Approach (ICD-10-PCS; 2018-01-26)
PROC: 047L3ZZ Dilation of Left Femoral Artery, Percutaneous Approach (ICD-10-PCS; 2018-01-27)
DX: E11.621 Type 2 diabetes mellitus with foot ulcer (principal); M86.172 Other acute osteomyelitis, left ankle and foot; M33.20 Polymyositis, organ involvement unspecified; E11.43 Type 2 diabetes mellitus with diabetic autonomic (poly)neuropathy; L97.504 Non-pressure chronic ulcer of other part of unspecified foot with necrosis of bone; R35.1 Nocturia; I10 Essential (primary) hypertension; E29.1 Testicular hypofunction; G62.9 Polyneuropathy, unspecified; Z79.84 Long term (current) use of oral hypoglycemic drugs; Z23 Encounter for immunization
CPT/HCPCS: 97116-GP; 97162-GP; 97165-GO; 97530-GP; 97535-GO; C1725; C1751; C1760; C1769; G0009; G8978-GP-CK; G8979-GP-CI; G8987-GO-CK; G8988-GO-CI; J0295; J0690; J1170; J1644; J1815; J1940; J2250; J2543; J2704; J2720; J3010; J3370; Q9967

== ENCOUNTER 2018-02-27 07:30 | Day surgery (SDC) | payer OTHER, MEDICAID ==
[2018-02-27] MEDS ORDERED: MINERAL OIL 10 ML VIAL ONE (07:51)
[2018-02-27] MEDS ORDERED: THROMBIN (BOVINE) 20,000 UNIT SPRAY TP ONE (07:51)
[2018-02-27] MEDS ORDERED: EPINEPHrine 1 MG/ML INJ ONE (07:51)
[2018-02-27] MEDS ORDERED: ceFAZolin 2 GM/DEXTROSE 100 ML IV ONE (07:58)
[2018-02-27] MEDS ORDERED: LR 1,000 ML IV ONE (07:59)
--- NOTE | 2018-02-27 08:15 | POSTANESTH ---
Post Anesthetic Evaluation Cardiovascular Status: Normal, Stable Respiratory Status: Normal, Stable Level of Consciousness/Mental Status: Can Participate in Eval, Mildly Sleepy, Arousable Pain Control: Adequate, Prn Tx Ordered Nausea/Vomiting Control: Adequate, Prn Tx Ordered Complications Possibly Related to Anesthesia: None Noted
--- NOTE | 2018-02-27 08:17 | PDANEPAE ---
ANE History of Present Illness 67 yo male with foot ulcer for SPSG from thigh. ANE Past Medical History - Cardiovascular History Hx Hypertension: Yes Hx Arrhythmias: No Hx Chest Pain: No Hx Coronary Artery / Peripheral Vascular Disease: Yes Hx CHF / Valvular Disease: No Hx Palpitations: No Cardiovascular History Comment: pvd. hyperlipidemia - Pulmonary History Hx COPD: No Hx Asthma/Reactive Airway Disease: No Hx Recent Upper Respiratory Infection: No Hx Oxygen in Use at Home: No Hx Sleep Apnea: No Sleep Apnea Screening Result - Last Documented: Positive Pulmonary History Comment: vivek triggers - Neurologic History Hx Cerebrovascular Accident: No Hx Seizures: No Hx Dementia: No Neurologic History Comment: COGNITIVE IMPAIRMENT - Endocrine History Hx Diabetes: Yes Hypothyroid: No Hyperthyroid: No Endocrine History Comment: type 2 NIDDM - last HGB A1C 9 - Renal History Hx Renal Disorders: No - Liver History Hx Hepatic Disorders: No - Neurological & Psychiatric Hx Hx Neurological and Psychiatric Disorders: No Neurological / Psychiatric History Comment: NEUROPATHY, POLYMYOSITIS - on MTX x4 years - Cancer History Hx Cancer: No - Congenital Disorder History Hx Congenital Disorders: No - GI History Hx Gastrointestinal Disorders: No - Other Health History Other Health History: LEFT FOOT ULCERS/CELLULITIS. wound vac to left foot. bilateral hearing aides. glasses. upper full denture. partial lower - Chronic Pain History Chronic Pain: Yes (NEUROPATHY TO FEET) - Surgical History Prior Surgeries: 01/23/18 left 5th toe amputation with Fernandez NED Review of Systems Review of Systems: - Exercise capacity METS (RN): 3 METS - Systems Constitutional: Reports: no symptoms Cardiac: Reports: no symptoms Respiratory: Reports: no symptoms Skin: Reports: other (venous stasis ulcers) ANE Patient History - Allergies Allergies/Adverse Reactions: No Known Allergies Allergy (Verified 02/26/18 14:50) - Home Medications Home Medications: Multivitamins [Multivitamin (*)] 1 each PO DAILY 02/17/14 [Last Taken 02/26/18 06:00] Testosterone IM [Testosterone 100mg/ml IM inj (*)] 250 mg IM Q21D 02/17/14 [ Last Taken 02/25/18] metFORMIN HCL [Glucophage 500 mg (*)] 1,000 mg PO BIDMEAL 02/17/14 [Last Taken 02/26/18 17:30] Gabapentin [Neurontin 300 MG (*)] 300 mg PO TID@,12/30/17 [Last Taken 18:00] Methotrexate Sodium [Rheumatrex] 7.5 mg PO MO@0700 12/30/17 [Last Taken 02/23/18 ] amLODIPine BESYLATE [Norvasc 5 mg (*)] 5 mg PO DAILY 12/30/17 [Last Taken 06:00] Folic Acid [Folic Acid 1 MG (*)] 1 mg PO DAILY 01/20/18 [Last Taken 02/26/18 06: 00] Gabapentin [Neurontin 300 MG (*)] 600 mg PO HS 01/20/18 [Last Taken 02/26/18 21: 00] Losartan/Hydrochlorothiazide [Losartan-Hctz 100-25 mg Tab] 1 each PO DAILY 01/20 [Last Taken 02/26/18 06:00] clonIDINE [Catapres (*)] 0.1 mg PO BID 01/20/18 [Last Taken 02/26/18 17:30] Mirabegron [Myrbetriq] 50 mg PO HS 01/24/18 [Last Taken 02/26/18 21:00] Atorvastatin Calcium [Lipitor 20 mg (*)] 20 mg PO HS 02/26/18 [Last Taken 21:00] Furosemide [Lasix 20 MG (*)] 20 mg PO DAILY 02/26/18 [Last Taken 02/26/18 06:00] Hydrocodone/APAP 5/325 [[place] 5/325 (*)] 1 - 2 mg PO Q4HRS PRN 02/26/18 [Last Taken 02/27/18 05:55] Insulin Glargine,Hum.rec.anlog [Basaglar Kwikpen U-100] 10 unit SQ HS 02/26/18 [ Last Taken 02/26/18 22:00] Nystatin [Mycostatin Cream (RX)] 1 myra TP BID 02/26/18 [Last Taken 02/26/18 21: 00] - NPO status NPO Since - Liquids (Date): 02/27/18 NPO Since - Liquids (Time): 06:00 NPO Since - Solids (Date): 02/26/18 NPO Since - Solids (Time): 22:00 - Anes Hx Anes Hx: no prior problems - Smoking Hx Smoking Status: Never smoked - Family Anes Hx Family Anes Hx: neg - N/A Family Hx Anesthesia Complications: none ANE Labs/Vital Signs - Vital Signs Blood Pressure: 123/73 Heart Rate: 61 Respiratory Rate: 16 O2 Sat (%): 92 Height: 185.42 cm Weight: 95.254 kg ANE Physical Exam - Airway Neck exam: FROM Mallampati Score: Class 1 Mouth exam: dentures - Pulmonary Pulmonary: clear to auscultation - Cardiovascular Cardiovascular: bradycardia - ASA Status ASA Status: III ANE Anesthesia Plan Anesthesia Plan: GA w LMA
--- NOTE | 2018-02-27 08:47 | PDHPUP ---
History & Physical Update H&P update statement: This history and physical update is based on an assessment of the patient which was completed after admission or registration (within 24 hours), but prior to the surgery/procedure. H&P update: H&P reviewed & patient examined, no change in patient's condition since H&P completed
[2018-02-27] MEDS ORDERED: LIDOCAINE 2% 5 ML SDV ONE (09:12)
[2018-02-27] MEDS ORDERED: PROPOFOL/EMULSION 500 MG/50 ML BOTTLE IV ONE (09:12)
[2018-02-27] MEDS ORDERED: fentaNYL 100 MCG/2 ML INJ ONE (09:12)
--- NOTE | 2018-02-27 09:22 | POSTOPPROG ---
Post Op Note Date of Operation: 02/27/18 Surgeon: Alexandra Presley Anesthesiologist: sissy Anesthesia: GET(General Endotracheal) Pre-op Diagnosis: diabetic foot ulcer with osteomylitis Post-op Diagnosis: same Indication: 67 yo s/p amputation L 5 toe and metatarsal with soft tissue defect Procedure: debride skin soft tissue and STSG Findings: Wound measures 5x3 Inf/Abcess present in the surg proc area at time of surgery?: Yes Depth: Superfical (Skin SQ) EBL: Minimal Specimen(s): none
[2018-02-27] MEDS ORDERED: HYDROCODONE/APAP 5/325 TAB PO PRN (09:51)
[2018-02-27] MEDS ORDERED: ONDANSETRON 4 MG/2 ML VIAL IVP PRN (09:51)
[2018-02-27] MEDS ORDERED: ALBUTEROL 3 ML DEYVIAL IH PRN (09:51)
[2018-02-27] MEDS ORDERED: fentaNYL 100 MCG/2 ML INJ IVP PRN (09:51)
[2018-02-27] MEDS ORDERED: ACETAMINOPHEN 500 MG TAB PO PRN (09:51)
[2018-02-27] MEDS ORDERED: NALOXONE HCL 0.4 MG/ML INJ IVP PRN (09:51)
[2018-02-27] MEDS ORDERED: LR 500 ML IV PRN (09:51)
--- NOTE | 2018-02-27 10:40 | GOP ---
[f rep st] OPERATIVE REPORT DATE OF OPERATION: 02/27/2018 SURGEON: Alexandra Presley MD ANESTHESIOLOGIST: Lisa Vieyra MD/General. PREOPERATIVE DIAGNOSIS: Diabetic foot ulcer with osteomyelitis status post amputation with wound. POSTOPERATIVE DIAGNOSIS: Diabetic foot ulcer with osteomyelitis status post amputation with wound. PROCEDURE PERFORMED: Debridement skin and soft tissue to the level of subcutaneous tissue with split -thickness skin graft. FINDINGS: SPECIMENS: None. ESTIMATED BLOOD LOSS: 5 cc. INDICATIONS: The patient is a 67-year-old man who presented with a terrible diabetic foot ulcer that had osteomyelitis. I performed amputation of his 5th toe and metatarsal head, but due to the extens carin infection was unable to close the soft tissue. He has been complying with negative pressure ther apy. He has excellent granulation tissue and is now ready for split-thickness skin graft. DESCRIPTION OF PROCEDURE: Patient was brought into the operating room, placed supine on the table an d general anesthesia was administered. His left foot and thigh were prepped and draped in the usual sterile fashion. I debrided the wound with a blade to decrease the bioburden. The wound measured 5 x 3 x 0.1 cm. I obtained a split-thickness skin graft one 12 thousandths of an inch from the left th igh. I performed back pie crusting. I stapled it in place on the wound followed by Adaptic Touch and a wound VAC. Hemostasis was achieved on the thigh with an epinephrine-soaked sponge and electrocaut jericho. Mepilex transfer and ABD and a Tegaderm were applied. He was awakened in the operating room, e xtubated and transferred to PACU in stable condition. /[id number]/MODL
[2018-02-27] MEDS ORDERED: HYDROCODONE/APAP 5/325 TAB ONE (11:23)
[2018-02-27 12:00] VITALS: BP 151/80
== END 2018-02-27 12:29 | disposition home or self-care (01) ==
LOC: FSGY 07:30 → F3N 07:30 → UNDOADMIN 07:30 → EDSTATUS 09:00 → FSGY 12:29
PROVIDERS: ATTEND Surgery
DX: L97.504 Non-pressure chronic ulcer of other part of unspecified foot with necrosis of bone (principal); M86.172 Other acute osteomyelitis, left ankle and foot; E11.621 Type 2 diabetes mellitus with foot ulcer; E11.43 Type 2 diabetes mellitus with diabetic autonomic (poly)neuropathy; I10 Essential (primary) hypertension; E78.5 Hyperlipidemia, unspecified; M33.20 Polymyositis, organ involvement unspecified; R35.1 Nocturia; G62.9 Polyneuropathy, unspecified; Z79.84 Long term (current) use of oral hypoglycemic drugs
CPT/HCPCS: J0171; J0690; J2704; J3010

== ENCOUNTER 2018-11-25 18:12 | Inpatient (IN) | payer OTHER, MEDICAID ==
[2018-11-25] MEDS ORDERED: IBUPROFEN 600 MG TAB PO ONE (18:44)
--- NOTE | 2018-11-25 18:46 | EDPHY ---
H & P Stated Complaint: fever today p foot surgery 1 wk ago Time Seen by Provider: 11/25/18 18:18 HPI/ROS: CHIEF COMPLAINT: Fever Limitations: Dementia, patient unable to provide any clinical history HISTORY OF PRESENT ILLNESS: 68-year-old male with diabetes and dementia presents with fever. s/p left foot surgery 1 week ago. Onset of fever today. The patient denies other symptoms and tells me he feels fine. No recent URI, cough, abdominal pain and no change in left foot pain. REVIEW OF SYSTEMS: Unable to obtain - Personal History Current Tetanus/Diphtheria Vaccine: Unsure Current Tetanus Diphtheria and Acellular Pertussis (TDAP): Unsure - Medical/Surgical History Hx Asthma: No Hx Chronic Respiratory Disease: No Hx Diabetes: Yes Hx Cardiac Disease: Yes Hx Renal Disease: No Hx Cirrhosis: No Hx Alcoholism: No Hx HIV/AIDS: No Hx Splenectomy or Spleen Trauma: No Other PMH: DM2, hyperlipidemia, HTN, Hypogonadism, paresthesia, peripheral neuropathy, osteoarthritis - Social History Smoking Status: Never smoked - Physical Exam Exam: General Appearance: Alert, nontoxic-appearing Eyes: Pupils equal and round, no conjunctival pallor or injection ENT, Mouth: Mucous membranes moist Neck: Normal inspection Respiratory: Lungs are clear to auscultation Cardiovascular: Regular rate and rhythm Gastrointestinal: Abdomen is soft and nontender Neurological: Alert, nonfocal exam Skin: Warm and dry Extremities: Left foot-erythema, warmth and tenderness on the dorsum of the foot, surgical wound on the sole of the foot Psychiatric: Flat affect Constitutional: Initial Vital Signs Temperature (C) 39 C H 11/25/18 18:18 Heart Rate 85 11/25/18 18:18 Respiratory Rate 18 11/25/18 18:18 Blood Pressure 122/66 H 11/25/18 18:18 O2 Sat (%) 89 L 11/25/18 18:18 O2 Delivery Mode Nasal Cannula O2 (L/minute) 2 Allergies/Adverse Reactions: No Known Allergies Allergy (Verified 02/26/18 14:50) Home Medications: Medication Instructions Recorded Multivitamins [Multivitamin (*)] 1 each PO DAILY 02/17/14 Testosterone IM [Testosterone 250 mg IM Q21D 02/17/14 100mg/ml IM inj (*)] metFORMIN HCL [Glucophage 500 mg 1,000 mg PO BIDMEAL 02/17/14 (*)] Gabapentin [Neurontin 300 MG (*)] 300 mg PO TID@09,12,18 12/30/17 Methotrexate Sodium [Rheumatrex] 7.5 mg PO MO@0700 12/30/17 amLODIPine BESYLATE [Norvasc 5 mg 5 mg PO DAILY 12/30/17 (*)] Folic Acid [Folic Acid 1 MG (*)] 1 mg PO DAILY 01/20/18 Gabapentin [Neurontin 300 MG (*)] 600 mg PO HS 01/20/18 Losartan/Hydrochlorothiazide 1 each PO DAILY 01/20/18 [Losartan-Hctz 100-25 mg Tab] clonIDINE [Catapres (*)] 0.1 mg PO BID 01/20/18 Mirabegron [Myrbetriq] 50 mg PO HS 01/24/18 Aspirin [Aspirin 81mg (*)] 81 mg PO DAILY #30 tab 01/28/18 Furosemide [Lasix 20 MG (*)] 20 mg PO DAILY 02/26/18 C/E/Zn/Cu/OM3/DHA/EPA/LUT/ZEAX 2 each PO DAILY 11/25/18 [Preservision Areds 2 Softgel] glipiZIDE [Glipizide] 10 mg PO DAILY 11/25/18 oxyCODONE IR [Oxycodone Ir (*)] 5 mg PO Q6H PRN 11/25/18 Medical Decision Making - Diagnostics Imaging Results: Imaging Impressions Chest X-Ray 11/25/18 18:44 Impression: Mild bronchitis. Question subtle nodular opacity, which could represent an early infiltrate, at the right costophrenic angle. Consider follow -up chest x-ray in two weeks. Foot X-Ray 11/25/18 19:38 Impression: 1. Postsurgical change of resection of the 5th ray beginning at the proximal diaphysis of the 5th metatarsal. Question mild adjacent osteomyelitis in the lateral margin of the proximal metadiaphysis, with overlying soft tissue swelling. 2. Soft tissue calcification in the plantar fascia at the insertion of the calcaneus. Cortical irregularity and lucency at the enthesophyte, which could be degenerative or foci of osteomyelitis. 3. Degenerative change, as above. E:CN/amm Imaging: I viewed and interpreted images myself ED Course/Re-evaluation: This patient presents one-week postop with left foot cellulitis. Meets SIRS criteria, lactate normal. Blood cultures were drawn and Ancef 1 g IV given. The hospitalist service was consulted for admission. Stable throughout his emergency department stay. Differential Diagnosis: Differential diagnosis includes pyelonephritis, cholecystitis, influenza, cellulitis, pneumonia, abscess, meningitis. - Data Points Laboratory Results: Laboratory Results 11/25/18 18:50 11/25/18 18:50 11/25/18 11/25/18 11/25/18 18:55 18:50 18:50 WBC 12.69 10^3/uL H 10^3/uL (3.80-9.50) RBC 4.32 10^6/uL L 10^6/uL (4.40-6.38) Hgb 13.9 g/dL g/dL (13.7-17.5) Hct 42.0 % % (40.0-51.0) MCV 97.2 fL fL (81.5-99.8) MCH 32.2 pg pg (27.9-34.1) MCHC 33.1 g/dL g/dL (32.4-36.7) RDW 13.8 % % (11.5-15.2) Plt Count 287 10^3/uL 10^3/uL (150-400) MPV 9.6 fL fL (8.7-11.7) Neut % (Auto) 84.9 % H % (39.3-74.2) Lymph % (Auto) 6.9 % L % (15.0-45.0) [place] % (Auto) 6.3 % % (4.5-13.0) Eos % (Auto) 0.7 % % (0.6-7.6) Baso % (Auto) 0.6 % % (0.3-1.7) Nucleat RBC Rel Count 0.0 % % (0.0-0.2) Absolute Neuts (auto) 10.77 10^3/uL H 10^3/uL (1.70-6.50) Absolute Lymphs (auto) 0.88 10^3/uL L 10^3/uL (1.00-3.00) Absolute Monos (auto) 0.80 10^3/uL 10^3/uL (0.30-0.80) Absolute Eos (auto) 0.09 10^3/uL 10^3/uL (0.03-0.40) Absolute Basos (auto) 0.07 10^3/uL 10^3/uL (0.02-0.10) Absolute Nucleated RBC 0.00 10^3/uL 10^3/uL (0-0.01) Immature Gran % 0.6 % % (0.0-1.1) Immature Gran # 0.08 10^3/uL 10^3/uL (0.00-0.10) VBG Lactic Acid Sodium 131 mEq/L L mEq/L (135-145) Potassium 5.1 mEq/L mEq/L (3.5-5.2) Chloride 92 mEq/L L mEq/L (97-110) Carbon Dioxide 27 mEq/l mEq/l (22-31) Anion Gap 12 mEq/L mEq/L (6-14) BUN 32 mg/dL H mg/dL (7-23) Creatinine 1.3 mg/dL mg/dL (0.7-1.3) Estimated GFR 55 Glucose 223 mg/dL H mg/dL (70-100) Calcium 8.3 mg/dL L mg/dL (8.5-10.4) Nasal Influenza A PCR NEGATIVE FOR FLU A (NEGATIVE) Nasal Influenza B PCR NEGATIVE FOR FLU B (NEGATIVE) 11/25/18 18:00 WBC RBC Hgb Hct MCV MCH MCHC RDW Plt Count MPV Neut % (Auto) Lymph % (Auto) [place] % (Auto) Eos % (Auto) Baso % (Auto) Nucleat RBC Rel Count Absolute Neuts (auto) Absolute Lymphs (auto) Absolute Monos (auto) Absolute Eos (auto) Absolute Basos (auto) Absolute Nucleated RBC Immature Gran % Immature Gran # VBG Lactic Acid 1.4 mmol/L mmol/L (0.7-2.1) Sodium Potassium Chloride Carbon Dioxide Anion Gap BUN Creatinine Estimated GFR Glucose Calcium Nasal Influenza A PCR Nasal Influenza B PCR Medications Given: Discontinued Medications Sodium Chloride (Ns) 1,000 mls @ 0 mls/hr IV ONCE ONE; Wide Open PRN Reason: Protocol Stop: 11/25/18 19:03 Last Admin: 11/25/18 20:05 Dose: 1,000 mls Cefazolin Sodium 1 gm/ Sodium (Chloride) 50 mls @ 200 mls/hr IV EDNOW ONE Stop: 11/25/18 20:29 Last Admin: 11/25/18 20:32 Dose: 50 mls Ibuprofen (Motrin) 600 mg PO EDNOW ONE Stop: 11/25/18 18:45 Last Admin: 11/25/18 18:51 Dose: 600 mg Departure - Departure Disposition: [facility] Inpatient Acute Clinical Impression: Cellulitis of left foot Condition: Fair
[2018-11-25] MEDS ORDERED: NS 1,000 ML IV ONE (19:02)
[2018-11-25 19:06] LABS: PLATELET COUNT 287 10^3/uL (150-400)
[2018-11-25] MEDS ORDERED: ONDANSETRON 4 MG/2 ML VIAL IVP PRN (20:11)
[2018-11-25] MEDS ORDERED: OXYCODONE/APAP 5/325 TAB PO PRN (20:11)
[2018-11-25] MEDS ORDERED: ACETAMINOPHEN 325 MG TAB PO PRN (20:11)
[2018-11-25] MEDS ORDERED: ONDANSETRON DISINTEGRATING 4 MG TAB PO PRN (20:11)
[2018-11-25] MEDS ORDERED: ceFAZolin 1 GM in NS 50 ML IV ONE (20:15)
[2018-11-25] MEDS ORDERED: CEFAZOLIN SODIUM IV ONE (20:15)
[2018-11-25] MEDS ORDERED: NS IV ONE (20:15)
[2018-11-25] MEDS ORDERED: NS 1,000 ML IV SCH (20:15)
[2018-11-25] MEDS ORDERED: D50W 25 GM/50 ML SYR IVP PRN (20:28)
--- NOTE | 2018-11-25 21:02 | GHP ---
[f rep st] HISTORY AND PHYSICAL DATE OF ADMISSION: 11/25/2018 CHIEF COMPLAINT: Fever. HISTORY OF PRESENT ILLNESS: This is a 68-year-old man who presents with a fever. He had left foot surgery about [address] Michael. He does not have any other symptoms. Denies runny nose, cold, nausea, vomiting, diarrhea or pain anywhere else. Per chart review, he had an amputation of the left 5th toe by Dr. Presley on January 23. He was treated with Unasyn for peptoniphilus and prevotella from the bone culture. PAST MEDICAL/SURGICAL HISTORY: 1. Dementia. 2. Hypertension. 3. Diabetes. 4. Hyperlipidemia. 5. Peripheral artery disease. 6. Polymyositis. 7. Osteomyelitis. 8. Peripheral neuropathy. MEDICATIONS: Please see medication reconciliation. ALLERGIES: No known drug allergies. FAMILY HISTORY: Reviewed and noncontributory. SOCIAL HISTORY: Lives at [place]. REVIEW OF SYSTEMS: A 10-point review of systems is conducted and is negative except per HPI. PHYSICAL EXAM: VITAL SIGNS: Blood pressure 126/82, heart rate 78, respiration rate 16, satting at 94% on room air. Temperature is 39. GENERAL: The patient is appearing as a pleasant man who is resting comfortably. No acute distress. HEENT: Shows him to be normocephalic, atraumatic. CARDIOVASCULAR: Shows a regular rate and rhythm. There are no murmurs, rubs, or gallops. PULMONARY: Exam shows his lungs are clear to auscultation bilaterally. ABDOMEN: Soft, nontender, nondistended. SKIN: Shows no rash. : No Aggarwal. NEUROLOGIC: Shows him to be alert and oriented. He has a quite flat affect. He seems to have trouble recalling some facts. EXTREMITIES: Shows the left lower extremity to be status post 5th metatarsal amputation. He has an open surgical wound on the left side. There is no purulence. He does have some erythema which extends to the mid mora. He has some left inguinal lymphadenopathy. LABS: White count is 12.6. Sodium is 131, BUN is 32, creatinine is 1.3. Glucose is 223. DATA: 1. Discussed with Dr. Anaya. Will admit to med/surg. 2. Foot x-rays reviewed. This shows possible mild osteomyelitis in the lateral margin with question of osteomyelitis in the enthesophyte. IMPRESSION/PLAN: 1. Left diabetic foot infection with possible osteomyelitis: For now, we will treat with vancomycin and Unasyn - old culture data is noted. I have placed a call to Dr. Michael's office, will attempt to alert him to the patient's admission. I have placed a consult for infectious disease as well. I will order an MRI. 2. Fever: Due to foot infection and diabetic. We will follow his clinical course. 3. Diabetes mellitus: Place him on sliding scale insulin. We will wait for his home insulin to be reconciled and then will continue this. 4. Polymyositis: He is taking methotrexate for this. 5. Hypertension: Will continue his antihypertensive. 6. Subtle nodular opacity on chest x-ray: Follow clinically. I do not believe that he has a pneumonia. 7. Venous thromboembolism risk: He is moderate to high risk. We will need to start Lovenox after he has either had surgery or this is no longer an option. /[id number]/MODL MTDD
[2018-11-25] MEDS ORDERED: ceFAZolin 2 GM/DEXTROSE 100 ML IV SCH (22:00)
[2018-11-25] MEDS ORDERED: GADOBUTROL 10 ML VIAL IVP ONE (22:20)
[2018-11-25] MEDS ORDERED: oxyCODONE IR 5 MG TAB PO PRN (22:28)
[2018-11-26] MEDS: VANCOMYCIN HCL/NORMAL SALINE 250 ML IV SCH ×2 (00:33→11:03)
[2018-11-26] MEDS: AMPICILLIN/SULBACTAM 3 GM in NS 100 ML IV SCH ×3 (04:22→14:43)
[2018-11-26 05:30] LABS: PLATELET COUNT 237 10^3/uL (150-400)
--- NOTE | 2018-11-26 07:34 | SOAPPROG ---
SOAP Progress Note Assessment/Plan: Assessment: 1. DM2 with PN 2. s/p exostectomy of left 5th metatarsal base - one week 3. possible osteomyelitis, left base of 5th metatarsal Plan: 11/26/18 07:32 1. discuss time frame with hospitalist and ID regarding surgery vs. IV abx Subjective: Doing well. No fever. slight chills this morning. Objective: Vital Signs Temp Pulse Resp BP Pulse Ox 36.7 C 71 17 134/74 H 97 11/26/18 04:00 11/26/18 04:00 11/26/18 04:00 11/26/18 04:00 11/26/18 04:00 Laboratory Results 11/26/18 04:56 11/26/18 04:56 11/25/18 11/26/18 11/27/18 05:59 05:59 05:59 Intake Total 1726 Output Total 950 Balance 776 dehiscence of wound, left foot; erythema and edema to left lateral foot; no ascending cellulitis; no active drainage from wound MRI: increase signal intensity within base of 5th metatarsal, left; no increased intensity within calcaneus, left - Time Spent With Patient Time Spent With Patient: 40 minutes - Pending Discharge Pending Discharge Within 24 Hours: No ICD10 Worksheet Patient Problems: Problems Problem Status Onset Cellulitis of left foot Acute Knee pain, bilateral Acute Neurodegenerative disorder Acute
[2018-11-26] MEDS: FUROSEMIDE 20 MG TAB PO SCH (08:53)
[2018-11-26] MEDS: ASPIRIN 81 MG CHEWABLE TAB PO SCH (08:53)
[2018-11-26] MEDS: INSULIN LISPRO 100 UNIT/ML SC SCH ×3 (08:53→21:59)
[2018-11-26] MEDS: GABAPENTIN 300 MG CAP PO SCH ×4 (08:53→20:48)
[2018-11-26] MEDS: amLODIPine BESYLATE 5 MG TAB PO SCH (08:53)
[2018-11-26] MEDS ORDERED: ENOXAPARIN 40 MG/0.4 ML SYR SC SCH (09:00)
[2018-11-26] MEDS ORDERED: BUPIVACAINE 0.5% 30 ML SDV ONE (15:30)
[2018-11-26] MEDS ORDERED: BACITRACIN 50,000 UNITS/10 ML SYR IRR ONE (15:31)
[2018-11-26] MEDS ORDERED: POLYMYXIN B SULFATE 500,000 UNIT/10 ML SYR IRR ONE (15:31)
--- NOTE | 2018-11-26 15:49 | HOSPPROG ---
Hospitalist Progress Note Assessment/Plan: 1. LLE Osteomyelitis - S/p recent resection of fifth metatarsal, MRI performed on admission showing postsurgical changes with evidence of osteomyelitis at the residual 5th metatarsal at the proximal metaphysis, adjacent fistula track extending to skin laterally and surround cellulitis - Discussed with Dr. Mello Michael, Podiatry, who plans to take patient to OR this afternoon - Blood cultures collected - Started on Vanc/Unasyn on admission, will continue for now - ID consulted this AM, f/u recommendations 2. Uncontrolled DM - BG elevated to 200's on admission - Holding home Metformin, Continue SSI 3. 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 HTN - Continue home anti-hypertensives 5. Subtle Nodular Opacity on CXR - Follow clinically, does not have pulmonary symptoms at this time FEN: NPO for procedure DVT PPx: Holding for procedure, restart tomorrow Code: FULL Dispo: Pending clinical course Subjective: Patient reports pain in LLE Objective: Vital Signs Temp Pulse Resp BP Pulse Ox 37.2 C 80 12 150/66 H 96 11/26/18 11:19 11/26/18 11:19 11/26/18 11:19 11/26/18 11:19 11/26/18 11:19 Laboratory Results 11/26/18 04:56 11/26/18 04:56 11/25/18 11/26/18 11/27/18 05:59 05:59 05:59 Intake Total 1726 700 Output Total 950 570 Balance 776 130 - Physical Exam Constitutional: chronically ill appearing, obese Eyes: PERRL Ears, Nose, Mouth, Throat: moist mucous membranes Cardiovascular: regular rate and rhythym Respiratory: no respiratory distress Gastrointestinal: soft, non-tender abdomen Skin: warm, erythema, other (LLE wrapped with gauze ) Musculoskeletal: pain with ROM Neurologic: AAOx3 Psychiatric: interacting appropriately ICD10 Worksheet Patient Problems: Problems Problem Status Onset Cellulitis of left foot Acute Knee pain, bilateral Acute Neurodegenerative disorder Acute
[2018-11-26] MEDS ORDERED: ACETAMINOPHEN 650 MG SUPP PR PRN (16:00)
[2018-11-26] MEDS ORDERED: ceFAZolin 2 GM/DEXTROSE 100 ML IV SCH (16:26)
--- NOTE | 2018-11-26 16:40 | ASMTCMCOM ---
CM Note CM Note Notes: Patient admitted for Cellulitis, to OR today. Patient resides at [facility]. Met with patient and brother, Mic #[phone]. Patient likely needs SNF on d/c and brother states they would like [facility] (patient has been there in the past). Referral sent to [facility] via [employer], PASRR complete. CM will follow. Plan: [facility] SNF pending acceptance. Date Signed: 11/26/2018 04:39 PM Electronically Signed By:Janna Siddiqui RN
[2018-11-26] MEDS ORDERED: LR 1,000 ML IV ONE (17:43)
[2018-11-26] MEDS ORDERED: PROPOFOL/EMULSION 500 MG/50 ML BOTTLE IV ONE (18:16)
[2018-11-26] MEDS ORDERED: fentaNYL 100 MCG/2 ML INJ ONE (18:19)
[2018-11-26] MEDS ORDERED: ONDANSETRON 4 MG/2 ML VIAL IVP PRN ×2 (18:37→19:36)
[2018-11-26] MEDS ORDERED: ALBUTEROL 3 ML DEYVIAL IH PRN (18:37)
[2018-11-26] MEDS ORDERED: LR 500 ML IV PRN (18:37)
[2018-11-26] MEDS ORDERED: fentaNYL 100 MCG/2 ML INJ IVP PRN (18:37)
[2018-11-26] MEDS ORDERED: NALOXONE HCL 0.4 MG/ML INJ IVP PRN (18:37)
--- NOTE | 2018-11-26 18:37 | PDANEPAE ---
ANE Past Medical History - Cardiovascular History Hx Hypertension: Yes Hx Arrhythmias: No Hx Chest Pain: No Hx Coronary Artery / Peripheral Vascular Disease: Yes Hx CHF / Valvular Disease: No Hx Palpitations: No Cardiovascular History Comment: pvd. hyperlipidemia - Pulmonary History Hx COPD: No Hx Asthma/Reactive Airway Disease: No Hx Recent Upper Respiratory Infection: No Hx Oxygen in Use at Home: No Hx Sleep Apnea: No Sleep Apnea Screening Result - Last Documented: Positive Pulmonary History Comment: vivek triggers - Neurologic History Hx Cerebrovascular Accident: No Hx Seizures: No Hx Dementia: No Neurologic History Comment: COGNITIVE IMPAIRMENT - Endocrine History Hx Diabetes: Yes Endocrine History Comment: type 2 NIDDM - last HGB A1C 9 - Renal History Hx Renal Disorders: No - Liver History Hx Hepatic Disorders: No - Neurological & Psychiatric Hx Hx Neurological and Psychiatric Disorders: No Neurological / Psychiatric History Comment: NEUROPATHY, POLYMYOSITIS - on MTX x4 years - Cancer History Hx Cancer: No - Congenital Disorder History Hx Congenital Disorders: No - GI History Hx Gastrointestinal Disorders: No - Other Health History Other Health History: LEFT FOOT ULCERS/CELLULITIS. wound vac to left foot. bilateral hearing aides. glasses. upper full denture. partial lower - Chronic Pain History Chronic Pain: Yes (NEUROPATHY TO FEET) - Surgical History Prior Surgeries: 01/23/18 left 5th toe amputation with Fernandez NED Review of Systems Review of Systems: ANE Patient History - Allergies Allergies/Adverse Reactions: No Known Allergies Allergy (Verified 02/26/18 14:50) - Home Medications Home Medications: Multivitamins [Multivitamin (*)] 1 each PO DAILY 02/17/14 [Last Taken 11/25/18] Testosterone IM [Testosterone 100mg/ml IM inj (*)] 250 mg IM Q21D 02/17/14 [ Last Taken 11/11/18] metFORMIN HCL [Glucophage 500 mg (*)] 1,000 mg PO BIDMEAL 02/17/14 [Last Taken 11/25/18] Gabapentin [Neurontin 300 MG (*)] 300 mg PO TID@,,12/30/17 [Last Taken ] Methotrexate Sodium [Rheumatrex] 7.5 mg PO MO@0700 12/30/17 [Last Taken 11/23/18 ] amLODIPine BESYLATE [Norvasc 5 mg (*)] 5 mg PO DAILY 12/30/17 [Last Taken ] Folic Acid [Folic Acid 1 MG (*)] 1 mg PO DAILY 01/20/18 [Last Taken 11/25/18] Gabapentin [Neurontin 300 MG (*)] 600 mg PO HS 01/20/18 [Last Taken 11/24/18] Losartan/Hydrochlorothiazide [Losartan-Hctz 100-25 mg Tab] 1 each PO DAILY 01/20 [Last Taken 11/25/18] clonIDINE [Catapres (*)] 0.1 mg PO BID 01/20/18 [Last Taken 11/25/18] Mirabegron [Myrbetriq] 50 mg PO HS 01/24/18 [Last Taken 11/25/18] Furosemide [Lasix 20 MG (*)] 20 mg PO DAILY 02/26/18 [Last Taken 11/25/18] C/E/Zn/Cu/OM3/DHA/EPA/LUT/ZEAX [Preservision Areds 2 Softgel] 2 each PO DAILY [Last Taken 11/25/18] glipiZIDE [Glipizide] 10 mg PO DAILY 11/25/18 [Last Taken 11/25/18] oxyCODONE IR [Oxycodone Ir (*)] 5 mg PO Q6H PRN 11/25/18 [Last Taken Unknown] - NPO status NPO Since - Liquids (Date): 11/26/18 NPO Since - Liquids (Time): 11:00 NPO Since - Solids (Date): 11/26/18 NPO Since - Solids (Time): 07:30 - Smoking Hx Smoking Status: Never smoked - Family Anes Hx Family Hx Anesthesia Complications: none ANE Labs/Vital Signs - Labs Result Diagrams: 11/26/18 04:56 11/26/18 04:56 - Vital Signs Blood Pressure: 130/61 Heart Rate: 92 Respiratory Rate: 16 O2 Sat (%): 90 Height: 187.96 cm Weight: 84.822 kg ANE Physical Exam - Airway Neck exam: decreased ROM Mallampati Score: Class 2 Mouth exam: normal dental/mouth exam - Pulmonary Pulmonary: no respiratory distress, no rales or rhonchi, reduced air movement - Cardiovascular Cardiovascular: regular rate and rhythym, no murmur, rub, or gallop - ASA Status ASA Status: IV, E ANE Anesthesia Plan Anesthesia Plan: MAC
--- NOTE | 2018-11-26 19:34 | POSTANESTH ---
Post Anesthetic Evaluation Cardiovascular Status: Normal, Stable, Similar to Pre-Op Cond Respiratory Status: Normal, Stable, Similar to Pre-op Cond. Level of Consciousness/Mental Status: Mildly Sleepy, Arousable Pain Control: Adequate, Prn Tx Ordered Nausea/Vomiting Control: Adequate, Prn Tx Ordered Complications Possibly Related to Anesthesia: None Noted
[2018-11-26] MEDS ORDERED: OXYCODONE/APAP 5/325 TAB PO PRN (19:36)
--- NOTE | 2018-11-26 19:36 | POSTOPPROG ---
Post Op Note Date of Operation: 11/26/18 Surgeon: Mello Michael Oyster Harvester: none Anesthesia: IV Sedation Pre-op Diagnosis: osteomyelitis, left 5th met Post-op Diagnosis: same Indication: MRI findings Procedure: excision of infected bone; anastamosis peroneal tendons Inf/Abcess present in the surg proc area at time of surgery?: Yes Depth: Deep Incisional (Fascial) EBL: Minimal Total fluids administered: per anesth Complications: none Bowel Protocol: No Clean Closure Performed: Yes Drains: Niyah (09/11" niyah) Specimen(s): bone culture and permanent aer/anaer/jabier s.t. specimen, t.b lynn
--- NOTE | 2018-11-26 19:54 | PDCONSULT ---
Beer Merchant Note: Infectious Diseases Consult Note Impression: 68-year-old man with MSSA bloodstream infection complicating probable left foot surgical site infection. Remains hemodynamically stable. 1. Staphylococcus aureus (MSSA) bloodstream infection; Likely left foot surgical site infection 2. Probable left foot surgical site infection 3. Immunocompromised patient due to methotrexate use for polymyositis 4. Diabetes mellitus Plan: 1. Stop vancomycin and Unasyn 2. Start cefazolin 2 g q.8 hours 3. Repeat blood cultures tomorrow 4. Reviewed in detail potential side effects of beta-lactam antibiotics to include: allergy, rash, nausea, antibiotic-associated diarrhea, Clostridioides difficile colitis. Marcellus Luong MD Infectious Diseases Chief Complaint: Fever Requesting Provider: Dr. Martínez Reason for Referral: Consultation was requested by Dr. Martínez regarding antimicrobial management. HPI: 68-year-old man presented with a fever from his care facility. Most of history obtained from the medical record as he is unable to give a detailed history. His brother at bedside also unable to give details of presenting history. His facility sent him to the hospital due to fever approximately 1 week after having a left foot surgery. His brother does note that he had blood soaking of a bandage over the left foot that was within expected based on their screen room operator evaluation. Upon presentation emergency department he had blood cultures drawn which are now growing Staphylococcus aureus (MSSA) and he has been taken to the operating room this evening with his screen room operator, Dr. Michael. The patient states "no" when asked if he has knee pain, wrist pain , elbow pain, shoulder pain, ankle pain, and back pain. He states he has had no diarrhea since admission or prior to admission and has no abdominal pain. It is noted that in January of 2018 he had left 5th toe and left 5th metatarsal head chronic osteomyelitis with peptostreptococcus and was treated with Unasyn which was discontinued on 02/11/2018 due to negative bone margins on pathology. On 01/23/2018 followed by a skin debridement and split-thickness skin grafting on 02/27/2018. Clinic notes show that his left foot was healing but had not healed to closure as of October of 2018. Reviewed patient medical records in [facility], and [facility] ([facility] Past Medical History: Left metatarsal head and left 5th toe chronic osteomyelitis 01/2018; diabetes mellitus, polymyositis, cognitive disability, chronic bilateral lower extremity venous stasis dermatitis Past Surgical History: Left foot surgery 11/19/2018; amputation left 5th toe metatarsal head, debridement of skin, soft tissue and tendon 01/23/2018; debridement of skin and soft tissue with split thickness skin graft 02/27/2018 Social History: Does not use tobacco products; Does not consume marijuana products; Drinks alcohol socially; Does not use any other drugs currently or in the past Family History: No family members with recurrent infections Allergies: NKDA Medications: Reviewed in medical record and confirmed with patient. ROS: 10 organ systems reviewed; pertinent positives and negatives listed in the HPI, all other organ systems negative. Physical Exam: VS: Reviewed Gen: No acute distress; Breathing comfortably without supplemental oxygen; Able to speak in complete sentences Eyes: No conjunctival injection; No scleral icterus HENT: No gross deformities Neck: No limitation in range of motion Pulm: Audible inspiratory sounds to the bases bilaterally; No wheeze, rhonchi, or rales CV: Normal S1 and S2; Regular tachycardia; No murmurs, rubs, or gallops; No lower extremity edema Abd: Not distended; Normo-active bowel sounds; Soft; Non-tender Skin: Bilateral lower extremity venous stasis dermatitis; LLE foot dressing not taken down MSK: Joints without erythema or edema; No gross limitation in range of motion Ext: No clubbing or cyanosis Neuro: Somnolent but wakes to verbal and tactile stimuli Psych: Normal mood and blunted affect Labs/Imaging: All microbiology testing (culture and non-culture) reviewed in the medical record. Personally reviewed and interpreted the images of the following radiographs: left foot x-ray Microbiology 01/23/18 13:39 Toe - Bone Gram Stain - Final 01/23/18 13:39 Toe - Bone Anaerobic Culture - Final Peptoniphilus Harei Group Prevotella Bergensis 01/23/18 13:39 Toe - Bone Fungal Culture - Final 11/25/18 18:25 Blood Blood Panel (PCR) - Final S.aureus Methicillin Suscept. 11/19/18 12:25 Foot - Eswab Gram Stain - Final 11/19/18 12:25 Foot - Eswab Anaerobic Culture - Final Staphylococcus Aureus 11/25/18 18:45 Blood Blood Culture - Preliminary Gram Positive Cocci Clusters 11/25/18 18:25 Blood Blood Culture - Preliminary 11/25/18 18:25 Blood Gram Positive Cocci Clusters Laboratory Tests 11/25/18 11/25/18 11/26/18 18:50 18:50 01:38 WBC 12.69 H Hgb 13.9 Plt Count 287 Creatinine 1.3 Urine WBC 1-3 11/26/18 11/26/18 04:56 04:56 WBC 8.77 Hgb 12.4 L Plt Count 237 Creatinine 1.0 Urine WBC Ongoing monitoring for antimicrobial toxicity with: CBC, BMP.
[2018-11-26] MEDS: ceFAZolin 2 GM/DEXTROSE 100 ML IV SCH (20:50)
[2018-11-26] MEDS: Mirabegron [Myrbetriq] 50 MG PO SCH (23:38)
--- NOTE | 2018-11-27 04:11 | GOP ---
[f rep st] OPERATIVE REPORT DATE OF OPERATION: 11/26/2018 SURGEON: Mello Michael DPM INCOME TAX INVESTIGATOR: None. ANESTHESIA: IV general. PREOPERATIVE DIAGNOSIS: Osteomyelitis of the 5th metatarsal, left foot. POSTOPERATIVE DIAGNOSIS: Osteomyelitis of the 5th metatarsal, left foot. PROCEDURE PERFORMED: 1. Resection of the residual base left 5th metatarsal. 2. Anastomosis of the peroneus brevis to the peroneus longus tendon, left foot. FINDINGS: ESTIMATED BLOOD LOSS: Minimal, roughly 2 cc. INDICATIONS: The patient is a 68-year-old gentleman who has been treated for a left foot plantar ulceration. The patient had a partial 5th ray resection in January of 2018. He has had with a residual wound due to a prominent 5th metatarsal base. One week ago on November 19, 2018, the patient had an exostectomy of the base of the 5th metatarsal to relieve the pressure causing this wound. Over the next 7 days, the patient developed an infection of the left foot wound. Both MRI and plain film radiographs demonstrate increased signal intensity as well as cortical bone changes consistent with osteomyelitis. The patient understands the risks, benefits, and alternatives to the proposed procedure and wishes to proceed. DESCRIPTION OF PROCEDURE: Under mild sedation, the patient was brought into the operating room, placed on the operating table in supine position. Following further IV sedation, the foot was scrubbed, prepped, and draped in the usual aseptic manner. An ipsilateral hip bump was placed prior to the scrub to decrease the amount of external rotation. At this time, a sterile pneumatic tourniquet was placed about the patient's well-padded supramalleolar area of the left lower extremity. A regional lateral hindfoot block was performed with 30 cc of 0.5% Marcaine plain. The foot was exsanguinated with elevation and the tourniquet was inflated to 250 mmHg. Attention was then directed to the already existing incision where the remaining sutures from 1 week ago of which the majority have completely dehisced and were no longer helping were removed. At this time, the incision was extended proximally beyond the base of the 5th metatarsal to better view the peroneus brevis tendon. Soft tissue specimens as well as swab cultures were taken at this time and passed from the operative field. At this time, the base of the 5th metatarsal was sharply removed by detaching all of its soft tissue attachments. This bone was split into portions including the permanent specimen as well as a bone culture. The wound was flushed with copious amounts of sterile normal saline. Any bleeders were ligated and cauterized as necessary. The peroneus brevis tendon was identified and tagged. The peroneus longus tendon was also identified. A very large os peroneum was noted within the tendon of the peroneus longus. It was decided that as opposed to removing it and having a shell of a tendon, that would be left in place and the peroneus brevis would be attached to the area distal to this os peroneum. The peroneus brevis tendon was split and attached in a circumferential manner to this peroneus longus tendon with #2 FiberWire. The wound was again flushed with copious amounts of sterile normal saline and closed in layers. 2-0 Vicryl was used to close the deep tissue layers. A 1/4-inch Niyah drain was placed within this void. The skin was reapproximated and coapted utilizing a combination of horizontal mattress type sutures as well as vertical mattress type sutures. The wound was dressed with Xeroform and a sterile compressive dressing consisting of 4 x 4's and Godwin. Kerlix was also used. The tourniquet was dropped and a prompt hyperemic response was noted to all residual digits of the left foot. An Delfino bandage was also applied. The patient tolerated the procedure and anesthesia well. He was transferred to the recovery room with vital signs stable and vascular status intact to all residual digits of the left foot. Following a period of postoperative monitoring, the patient will be discharged back to the [facility] floor for further medical treatment including further followup with Infectious Disease. REASON FOR ADMISSION: Fever with cellulitis of left foot. PATHOLOGY: Soft tissue specimens were taken for soft tissue culture as well as tuberculosis screen. Culture swabs were taken for aerobic, anaerobic, and fungal. Bone was procured for culture as well as permanent specimen. HEMOSTASIS: Pneumatic ankle tourniquet at 250 mmHg for 62 minutes. MATERIALS: #2 FiberWire for the anastomosis. INJECTABLES: 30 cc of 0.5% Marcaine plain. COMPLICATIONS: None. /[id number]/MODL MTDD
[2018-11-27] MEDS: ceFAZolin 2 GM/DEXTROSE 100 ML IV SCH ×3 (04:40→20:13)
[2018-11-27 05:24] LABS: PLATELET COUNT 250 10^3/uL (150-400)
--- NOTE | 2018-11-27 08:28 | PDMN ---
Medical Necessity Medical necessity: Change to IP, as of 11/26/18, per & MCG M-600; los >2 mn for ongoing management of LLE osteomyelitis s/p recent resection of 5th metatarsal w/adjacent fistula & surrounding cellulitis; requiring surgical intervention, ID/Wound Care consults, IV abx & therapies; hx uncontrolled diabetes, polymyositis on Methotrexate
[2018-11-27] MEDS: FUROSEMIDE 20 MG TAB PO SCH (11:34)
[2018-11-27] MEDS: ASPIRIN 81 MG CHEWABLE TAB PO SCH (11:35)
[2018-11-27] MEDS: amLODIPine BESYLATE 5 MG TAB PO SCH (11:35)
[2018-11-27] MEDS: GABAPENTIN 300 MG CAP PO SCH ×4 (11:37→20:12)
[2018-11-27] MEDS: INSULIN LISPRO 100 UNIT/ML SC SCH ×3 (12:10→18:00)
--- NOTE | 2018-11-27 12:31 | SOAPPROG ---
SOAP Progress Note Assessment/Plan: Assessment: 1. s/p left foot resection of osteomyelitis, left foot Plan: 11/26/18 07:32 1. discuss time frame with hospitalist and ID regarding surgery vs. IV abx 11/27/18 12:29 1. awaiting labs and path results. Patient continues with IV abx as per ID. 2. continue NWB with elevation of left foot 3. redressed with DSD at today's visit. Will follow up tomorrow. Objective: Vital Signs Temp Pulse Resp BP Pulse Ox 37.1 C 77 12 135/62 H 96 11/27/18 12:00 11/27/18 12:00 11/27/18 12:00 11/27/18 12:00 11/27/18 12:00 Microbiology 11/26/18 18:30 Gram Stain - Final Foot - Tissue 11/26/18 18:30 Gram Stain - Final Foot - Eswab 11/26/18 18:30 Mycobacterial Smear (JARETT) - Final Foot - Eswab Mycobacterial Culture - Final Laboratory Results 11/27/18 04:58 11/27/18 04:58 11/26/18 11/27/18 11/28/18 05:59 05:59 05:59 Intake Total 1145 Output Total 1652 Balance -507 sutures intact; drain left in place; decreased edema; decreased erythema; no ascending cellulitis; no active drainage, left foot - Pending Discharge Pending Discharge Within 48 Hours: No ICD10 Worksheet Patient Problems: Problems Problem Status Onset Cellulitis of left foot Acute Knee pain, bilateral Acute Neurodegenerative disorder Acute
--- NOTE | 2018-11-27 13:33 | PCMIDPN ---
Assessment/Plan: Assessment: 68-year-old man with Staphylococcus aureus (MSSA) bloodstream infection secondary to a left foot deep surgical site infection which is now been operatively debrided. He remains hemodynamically stable with a change to cefazolin upon identification of methicillin susceptibility. He has no peripheral evidence for metastatic foci of Staphylococcus aureus and although he does have a systolic murmur he will defer echocardiography pending duration of bacteremia and triage of endocarditis risk. 1. Staphylococcus aureus (MSSA) bloodstream infection with likely source left foot deep surgical site infection 2. Left foot surgical site infection, deep 3. Status post residual left 5th metatarsal resection and wound debridement 11/26 4. Status post left foot exostectomy 11/19/2018 5. Status post left 5th toe in left 5th metatarsal head resection 01/23/2018 6. Status post debridement and split thickness skin grafting the left lateral foot 02/27/2018 7. History of left 5th toe and left 5th metatarsal head chronic osteomyelitis with negative resection margins February 2018 8. Immunocompromised patient due to methotrexate use 9. Diabetes mellitus Plan: 1. Continue cefazolin 2 g q.8 2. Will follow repeat blood cultures 3. Reviewed in detail potential side effects of beta-lactam antibiotics to include: allergy, rash, nausea, antibiotic-associated diarrhea, Clostridioides difficile colitis. Marcellus Luong MD Infectious Diseases 11/27/18 13:50 Subjective: Went to the operating room last evening for resection of the residual base of 5th metatarsal. It was noted that the sutures in place from his operative procedure 1 week prior or dehisced. He was febrile again overnight with states he feels generally well this morning. He notes no new joint pains and no back pain. Objective: Vital Signs Temp Pulse Resp BP Pulse Ox 37.1 C 77 12 135/62 H 96 11/27/18 12:00 11/27/18 12:00 11/27/18 12:00 11/27/18 12:00 11/27/18 12:00 Microbiology 11/26/18 18:30 Mycobacterial Smear (JARETT) - Final Foot - Tissue 11/26/18 18:30 Gram Stain - Final Foot - Tissue 11/26/18 18:30 Gram Stain - Final Foot - Eswab 11/26/18 18:30 Mycobacterial Smear (JARETT) - Final Foot - Eswab Mycobacterial Culture - Final Laboratory Results 11/27/18 04:58 11/27/18 04:58 11/26/18 11/27/18 11/28/18 05:59 05:59 05:59 Intake Total 1145 Output Total 1652 Balance -507 Medications Generic Name Dose Route Start Last Admin Trade Name Jose Roberto PRN Reason Stop Dose Admin Cefazolin Sodium/Dextrose 100 mls @ 200 mls/hr 11/26/18 20:30 11/27/18 12:42 Ancef IV 12/26/18 20:29 100 mls Q8H [facility] Protocol Discontinued Medications Generic Name Dose Route Start Last Admin Trade Name Jose Roberto PRN Reason Stop Dose Admin Ampicillin Sodium/Sulbactam 100 mls @ 200 mls/hr 11/26/18 02:30 11/26/18 14: 43 Sodium 3 gm/ Sodium Chloride IV 12/26/18 02:29 100 mls Q6H [facility] Protocol Vancomycin/Sodium Chloride 250 mls @ 250 mls/hr 11/25/18 22:30 11/26/18 11:03 Vancomycin 1 Gm (Premix) IV 12/25/18 22:29 250 mls Q12H [facility] Microbiology 11/26/18 18:30 Foot - Eswab Mycobacterial Smear (JARETT) - Final 11/26/18 18:30 Foot - Eswab Mycobacterial Culture - Final 11/26/18 18:30 Foot - Eswab Gram Stain - Final 11/25/18 18:25 Blood Blood Panel (PCR) - Final S.aureus Methicillin Suscept. 11/25/18 18:45 Blood Blood Culture - Preliminary Staphylococcus Aureus 11/25/18 18:25 Blood Blood Culture - Preliminary 11/25/18 18:25 Blood Staphylococcus Aureus Laboratory Tests 11/25/18 11/26/18 11/27/18 18:50 04:56 04:58 WBC 12.69 H 8.77 9.43 Hgb 13.9 12.4 L 12.5 L Plt Count 287 237 250 Creatinine 11/27/18 04:58 WBC Hgb Plt Count Creatinine 1.1 - Physical Exam General Appearance: no apparent distress, non-toxic EENT: No scleral icterus Respiratory: No respiratory distress, No accessory muscle use, No crackles, No wheezing Neck: full range of motion, supple Cardiac/Chest: systolic murmur, No bradycardia, No tachycardia, No diastolic murmur Abdomen: non-tender, soft, No distended, No guarding Skin: No erythema Neuro/Psych: alert, oriented x 3, depressed affect, No confused - Time Spent With Patient Time Spent with Patient: greater than 25 minutes Time Spent with Patient: Greater than 25 minutes spent on this patients care, greater than 50% of time spent counseling, educating, and coordinating care regarding the above mentioned plan. ICD10 Worksheet Patient Problems: Problems Problem Status Onset Cellulitis of left foot Acute Knee pain, bilateral Acute Neurodegenerative disorder Acute
--- NOTE | 2018-11-27 14:15 | ASMTCMCOM ---
CM Note CM Note Notes: Pt chart reviewed and attempted to see Pt twice but he was sleeping. Pt had Debridement osteomyelitis & removal of infected Bone 11/27/18. Sent updates to [facility] as Pt has been accepted to [facility]. CM available for needs. PLAN: Peter Reyna Chadbourn Date Signed: 11/27/2018 02:14 PM Electronically Signed By:Gloria Owen
--- NOTE | 2018-11-27 16:41 | HOSPPROG ---
Hospitalist Progress Note Assessment/Plan: 1. LLE Osteomyelitis - S/p recent resection of fifth metatarsal, MRI performed on admission showing postsurgical changes with evidence of osteomyelitis at the residual 5th metatarsal at the proximal metaphysis, adjacent fistula track extending to skin laterally and surround cellulitis - Discussed with Dr. Mello Michael, Podiatry, s/p OR yesterday - Blood cultures growing MSSA, repeat obtained today - Started on Vanc/Unasyn on admission, switched to Cefazolin due to MSSA on 11/26 - ID consulted, recommended continue Cefazolin 2. Uncontrolled DM - BG elevated to 200's on admission - Holding home Metformin, Continue SSI 3. 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 HTN - Continue home anti-hypertensives 5. Subtle Nodular Opacity on CXR - Follow clinically, does not have pulmonary symptoms at this time FEN: NPO for procedure DVT PPx: Holding for procedure, restart tomorrow Code: FULL Dispo: Pending clinical course Subjective: Patient reports pain in LLE this AM Objective: Vital Signs Temp Pulse Resp BP Pulse Ox 36.8 C 72 16 124/53 H 97 11/27/18 15:30 11/27/18 15:30 11/27/18 15:30 11/27/18 15:30 11/27/18 15:30 Microbiology 11/26/18 18:30 Gram Stain - Final Foot - Tissue 11/26/18 18:30 Mycobacterial Smear (JARETT) - Final Foot - Tissue 11/26/18 18:30 Gram Stain - Final Foot - Eswab 11/26/18 18:30 Mycobacterial Smear (JARETT) - Final Foot - Eswab Mycobacterial Culture - Final Laboratory Results 11/27/18 04:58 11/27/18 04:58 11/26/18 11/27/18 11/28/18 05:59 05:59 05:59 Intake Total 1145 Output Total 1652 Balance -507 - Physical Exam Constitutional: chronically ill appearing Eyes: PERRL Ears, Nose, Mouth, Throat: moist mucous membranes Cardiovascular: regular rate and rhythym Respiratory: no respiratory distress Gastrointestinal: soft, non-tender abdomen Skin: warm, other (L foot wrapped in guaze) Neurologic: No AAOx3 Psychiatric: interacting appropriately ICD10 Worksheet Patient Problems: Problems Problem Status Onset Cellulitis of left foot Acute Knee pain, bilateral Acute Neurodegenerative disorder Acute
[2018-11-27] MEDS: Mirabegron [Myrbetriq] 50 MG PO SCH (21:17)
[2018-11-28] MEDS: ceFAZolin 2 GM/DEXTROSE 100 ML IV SCH ×3 (04:58→20:17)
[2018-11-28] MEDS: INSULIN LISPRO 100 UNIT/ML SC SCH ×3 (07:57→18:56)
[2018-11-28] MEDS: FUROSEMIDE 20 MG TAB PO SCH (10:19)
[2018-11-28] MEDS: ASPIRIN 81 MG CHEWABLE TAB PO SCH (10:19)
[2018-11-28] MEDS: GABAPENTIN 300 MG CAP PO SCH ×4 (10:19→20:15)
[2018-11-28] MEDS: amLODIPine BESYLATE 5 MG TAB PO SCH (10:20)
--- NOTE | 2018-11-28 14:18 | HOSPPROG ---
Hospitalist Progress Note Assessment/Plan: 1. LLE Osteomyelitis - S/p recent resection of fifth metatarsal, MRI performed on admission showing postsurgical changes with evidence of osteomyelitis at the residual 5th metatarsal at the proximal metaphysis, adjacent fistula track extending to skin laterally and surround cellulitis - Discussed with Dr. Mello Michael, Podiatry, s/p OR on 11/26 - Blood and wound cultures growing MSSA, repeat obtained on 11/27 - Started on Vanc/Unasyn on admission, switched to Cefazolin due to MSSA on 11/26 - ID consulted, recommended continue Cefazolin, will f/u recommendations for duration 2. Uncontrolled DM - BG elevated to 200's on admission - Holding home Metformin, Continue SSI 3. Hyponatremia - Na 130 this AM, 131,132 over admission - Advanced to regular diet this AM - Continue to monitor 4. Polymyositis - Pt takes Methotrexate for this, will hold in setting of active infection 5. HTN - Continue home anti-hypertensives 6. Subtle Nodular Opacity on CXR - Follow clinically, does not have pulmonary symptoms at this time FEN: Regular Diet DVT PPx: Holding for procedure, restart tomorrow Code: FULL Dispo: Pending clinical course Subjective: Patient reports some pain in LLE this morning Objective: Vital Signs Temp Pulse Resp BP Pulse Ox 36.3 C 74 18 134/66 H 93 11/28/18 12:26 11/28/18 12:26 11/28/18 12:26 11/28/18 12:26 11/28/18 12:26 Microbiology 11/26/18 18:30 Gram Stain - Final Foot - Tissue 11/26/18 18:30 Gram Stain - Final Foot - Eswab 11/26/18 18:30 Mycobacterial Smear (JARETT) - Final Foot - Tissue 11/26/18 18:30 Mycobacterial Smear (JARETT) - Final Foot - Eswab Mycobacterial Culture - Final Laboratory Results 11/27/18 04:58 11/28/18 05:00 11/27/18 11/28/18 11/29/18 05:59 05:59 05:59 Intake Total 1145 950 Output Total 1652 1000 Balance -507 -50 - Physical Exam Constitutional: chronically ill appearing Eyes: PERRL Ears, Nose, Mouth, Throat: moist mucous membranes Cardiovascular: regular rate and rhythym Respiratory: no respiratory distress Gastrointestinal: soft, non-tender abdomen Genitourinary: No trejo in urethra Skin: warm, erythema Neurologic: No AAOx3 Psychiatric: interacting appropriately ICD10 Worksheet Patient Problems: Problems Problem Status Onset Cellulitis of left foot Acute Knee pain, bilateral Acute Neurodegenerative disorder Acute
--- NOTE | 2018-11-28 15:42 | SOAPPROG ---
FIGUEROA Progress Note Assessment/Plan: Assessment: 1. s/p left foot resection of osteomyelitis, left foot Plan: 11/26/18 07:32 1. discuss time frame with hospitalist and ID regarding surgery vs. IV abx 11/27/18 12:29 1. awaiting labs and path results. Patient continues with IV abx as per ID. 2. continue NWB with elevation of left foot 3. redressed with DSD at today's visit. Will follow up tomorrow. 11/28/18 15:39 1. redressed left foot with DSD. 2. Cntinue NWB to left foot. appreciate PT help with this. 3. Once patient is transferred to [facility], then I will want to have him follow up with [facility] podiatry/ortho dept within next 7 days. [phone] for appt. 4. Patient to have dressing changes every other day. 5. I will follow up on 11/30/18 for repeat dressing change, if patient is still inpatient. Subjective: Patient still have mild ache in foot. Denies f/c/n/v. Objective: Vital Signs Temp Pulse Resp BP Pulse Ox 36.3 C 74 18 134/66 H 93 11/28/18 12:26 11/28/18 12:26 11/28/18 12:26 11/28/18 12:26 11/28/18 12:26 Microbiology 11/26/18 18:30 Gram Stain - Final Foot - Tissue 11/26/18 18:30 Gram Stain - Final Foot - Eswab 11/26/18 18:30 Mycobacterial Smear (JARETT) - Final Foot - Tissue 11/26/18 18:30 Mycobacterial Smear (JARETT) - Final Foot - Eswab Mycobacterial Culture - Final Laboratory Results 11/27/18 04:58 11/28/18 05:00 11/27/18 11/28/18 11/29/18 05:59 05:59 05:59 Intake Total 1145 950 Output Total 5845 1953 Balance -507 -50 - Time Spent With Patient Time Spent With Patient: 30 min ICD10 Worksheet Patient Problems: Problems Problem Status Onset Cellulitis of left foot Acute Knee pain, bilateral Acute Neurodegenerative disorder Acute
[2018-11-28] MEDS: Mirabegron [Myrbetriq] 50 MG PO SCH (21:30)
[2018-11-29] MEDS: ceFAZolin 2 GM/DEXTROSE 100 ML IV SCH ×3 (04:04→20:51)
[2018-11-29] MEDS: INSULIN LISPRO 100 UNIT/ML SC SCH ×3 (08:17→18:19)
[2018-11-29] MEDS: amLODIPine BESYLATE 5 MG TAB PO SCH (09:29)
[2018-11-29] MEDS: ASPIRIN 81 MG CHEWABLE TAB PO SCH (09:30)
[2018-11-29] MEDS: FUROSEMIDE 20 MG TAB PO SCH (09:30)
[2018-11-29] MEDS: GABAPENTIN 300 MG CAP PO SCH ×4 (09:30→20:50)
--- NOTE | 2018-11-29 12:01 | PCMIDPN ---
Assessment/Plan: Assessment: 68-year-old man with Staphylococcus aureus (MSSA) bloodstream infection secondary to a left foot deep surgical site infection which is now been operatively debrided. He seemingly had a transient bloodstream infection with the probable source being the left foot postsurgical infection which is been debrided. Will commit to 2 weeks of IV therapy followed by 2 weeks of oral therapy to treat this MSSA bloodstream infection. He does not have overt signs or symptoms to suggest endocarditis so we will forego echocardiography. 1. Staphylococcus aureus (MSSA) bloodstream infection with likely source left foot deep surgical site infection 2. Left foot surgical site infection, deep 3. Status post residual left 5th metatarsal resection and wound debridement 11/26 4. Status post left foot exostectomy 11/19/2018 5. Status post left 5th toe in left 5th metatarsal head resection 01/23/2018 6. Status post debridement and split thickness skin grafting the left lateral foot 02/27/2018 7. History of left 5th toe and left 5th metatarsal head chronic osteomyelitis with negative resection margins February 2018 8. Immunocompromised patient due to methotrexate use 9. Diabetes mellitus Plan: 1. Continue cefazolin 2 g q.8 2. Repeat blood cultures negative for greater than 48 hr, will plan PICC line insertion for tomorrow 3. Reviewed in detail potential side effects of beta-lactam antibiotics to include: allergy, rash, nausea, antibiotic-associated diarrhea, Clostridioides difficile colitis. Marcellus Luong MD Infectious Diseases 11/29/18 11:52 Subjective: No fever or chills in the past 24-hours. Tolerating oral diet with solids and liquids. No diarrhea, nausea, or other GI symptoms. No rash. Appetite improving. Ambulating without difficulty. Improved since admission but not back to baseline health. Objective: Vital Signs Temp Pulse Resp BP Pulse Ox 37.1 C 70 16 153/80 H 93 11/29/18 11:34 11/29/18 11:34 11/29/18 11:34 11/29/18 11:34 11/29/18 11:34 Microbiology 11/26/18 18:30 Gram Stain - Final Foot - Tissue 11/26/18 18:30 Gram Stain - Final Foot - Eswab Laboratory Results 11/27/18 04:58 11/29/18 04:37 11/28/18 11/29/18 11/30/18 05:59 05:59 05:59 Intake Total 950 1700 112 Output Total 1000 1225 Balance -50 475 112 Medications Generic Name Dose Route Start Last Admin Trade Name Jose Roberto PRN Reason Stop Dose Admin Cefazolin Sodium/Dextrose 100 mls @ 200 mls/hr 11/26/18 20:30 11/29/18 04:04 Ancef IV 12/26/18 20:29 100 mls Q8H [facility] Protocol Microbiology 11/26/18 18:30 Foot - Tissue Gram Stain - Final 11/26/18 18:30 Foot - Eswab Gram Stain - Final 11/25/18 18:45 Blood Blood Culture - Final Staphylococcus Aureus 11/25/18 18:25 Blood Blood Culture - Final 11/25/18 18:25 Blood Blood Panel (PCR) - Final Staphylococcus Aureus S.aureus Methicillin Suscept. 11/27/18 05:04 Blood Blood Culture - Preliminary 11/27/18 04:58 Blood Blood Culture - Preliminary 11/26/18 18:30 Foot - Tissue Anaerobic Culture - Preliminary Staphylococcus Aureus 11/26/18 18:30 Foot - Eswab Anaerobic Culture - Preliminary Staphylococcus Aureus Laboratory Tests 11/25/18 11/25/18 11/27/18 18:50 18:55 04:58 WBC 12.69 H 9.43 Hgb 13.9 12.5 L Plt Count 287 250 Creatinine Nasal Influenza A PCR NEGATIVE FOR FLU A Nasal Influenza B PCR NEGATIVE FOR FLU B 11/29/18 04:37 WBC Hgb Plt Count Creatinine 0.9 Nasal Influenza A PCR Nasal Influenza B PCR - Physical Exam General Appearance: no apparent distress, non-toxic EENT: No scleral icterus Respiratory: lungs clear, No respiratory distress, No accessory muscle use, No crackles, No wheezing Neck: full range of motion, supple Cardiac/Chest: regular rate, rhythm, systolic murmur, No bradycardia, No tachycardia Extremities: other (Left lower extremity surgical dressing not taken down today) Abdomen: normal bowel sounds, non-tender, soft, No distended, No guarding Skin: other (Postsurgical dressing on left foot not taken down today), No erythema Neuro/Psych: alert, oriented x 3, depressed affect, No confused - Time Spent With Patient Time Spent with Patient: greater than 25 minutes Time Spent with Patient: Greater than 25 minutes spent on this patients care, greater than 50% of time spent counseling, educating, and coordinating care regarding the above mentioned plan. ICD10 Worksheet Patient Problems: Problems Problem Status Onset Cellulitis of left foot Acute Knee pain, bilateral Acute Neurodegenerative disorder Acute
[2018-11-29] MEDS ORDERED: ALTEPLASE 2 MG VIAL IVP PRN (12:12)
--- NOTE | 2018-11-29 12:12 | PDIAF ---
- Diagnosis Diagnosis: MSSA bloodstream infection Code Status: Full Code - Medication Management Patient Financial Advocate Antibiotics: cefazolin 2gm q8 hours OR cefazolin 6gm q24 hours via continuous infusion Patient Financial Advocate Antibiotic Stop Date: 12/11/18 Discharge Medications: electronically signed and located in the Home Medication List. PICC Care - Routine: Yes - Orders Isolation Type: None - Labs/Radiology BMP Date: 12/07/18 CBC w/diff Date: 12/07/18 Call or Fax Lab and Imaging Results to: - Follow Up Care Current Providers and Referrals: Patient,NotPresent [Unknown] - As per Instructions Marcellus Luong MD [Medical Doctor] - follow up in 2 weeks
--- NOTE | 2018-11-29 15:31 | HOSPPROG ---
Hospitalist Progress Note Assessment/Plan: 1. LLE Osteomyelitis - S/p recent resection of fifth metatarsal, MRI performed on admission showing postsurgical changes with evidence of osteomyelitis at the residual 5th metatarsal at the proximal metaphysis, adjacent fistula track extending to skin laterally and surround cellulitis - Discussed with Dr. Mello Michael, Podiatry, s/p OR on 11/26 - Blood and wound cultures growing MSSA, repeat obtained on 11/27 - Started on Vanc/Unasyn on admission, switched to Cefazolin due to MSSA on 11/26 , stop date per ID 12/11/2018 - ID consulted, recommended continue Cefazolin, PICC tomorrow AM 2. Uncontrolled DM - BG elevated to 200's on admission - Holding home Metformin, Continue SSI 3. Hyponatremia - Na 129 this AM, 131,132 over admission - Advanced to regular diet this AM - Continue to monitor 4. Polymyositis - Pt takes Methotrexate for this, will hold in setting of active infection 5. HTN - Continue home anti-hypertensives 6. Subtle Nodular Opacity on CXR - Follow clinically, does not have pulmonary symptoms at this time FEN: Regular Diet DVT PPx: Holding for procedure, restart tomorrow Code: FULL Dispo: Pending clinical course Subjective: Patient reports some LLE pain this AM Objective: Vital Signs Temp Pulse Resp BP Pulse Ox 37.1 C 70 16 153/80 H 93 11/29/18 11:34 11/29/18 11:34 11/29/18 11:34 11/29/18 11:34 11/29/18 11:34 Microbiology 11/26/18 18:30 Gram Stain - Final Foot - Tissue 11/26/18 18:30 Mycobacterial Smear (JARETT) - Final Foot - Tissue 11/26/18 18:30 Gram Stain - Final Foot - Eswab 11/26/18 18:30 Mycobacterial Smear (JARETT) - Final Foot - Eswab Mycobacterial Culture - Final Laboratory Results 11/27/18 04:58 11/29/18 04:37 11/28/18 11/29/18 11/30/18 05:59 05:59 05:59 Intake Total 950 1700 112 Output Total 1000 1225 Balance -50 475 112 - Physical Exam Constitutional: chronically ill appearing Eyes: PERRL Ears, Nose, Mouth, Throat: moist mucous membranes Cardiovascular: regular rate and rhythym Respiratory: no respiratory distress Gastrointestinal: soft, non-tender abdomen Skin: warm, erythema Musculoskeletal: pain with ROM Neurologic: No AAOx3 Psychiatric: interacting appropriately ICD10 Worksheet Patient Problems: Problems Problem Status Onset Cellulitis of left foot Acute Knee pain, bilateral Acute Neurodegenerative disorder Acute
[2018-11-29] MEDS: Mirabegron [Myrbetriq] 50 MG PO SCH (22:52)
[2018-11-30] MEDS: ceFAZolin 2 GM/DEXTROSE 100 ML IV SCH ×2 (04:05→11:53)
[2018-11-30] MEDS ORDERED: METHOTREXATE 2.5 MG TAB PO SCH (07:00)
[2018-11-30] MEDS: FUROSEMIDE 20 MG TAB PO SCH (08:24)
[2018-11-30] MEDS: amLODIPine BESYLATE 5 MG TAB PO SCH (08:24)
[2018-11-30] MEDS: ASPIRIN 81 MG CHEWABLE TAB PO SCH (08:24)
[2018-11-30] MEDS: GABAPENTIN 300 MG CAP PO SCH ×2 (08:24→11:53)
[2018-11-30] MEDS: INSULIN LISPRO 100 UNIT/ML SC SCH ×2 (08:24→11:53)
--- NOTE | 2018-11-30 10:59 | SOAPPROG ---
SOAP Progress Note Assessment/Plan: Assessment: 1. s/p left foot resection of osteomyelitis, left foot - POD 4 Plan: 11/26/18 07:32 1. discuss time frame with hospitalist and ID regarding surgery vs. IV abx 11/27/18 12:29 1. awaiting labs and path results. Patient continues with IV abx as per ID. 2. continue NWB with elevation of left foot 3. redressed with DSD at today's visit. Will follow up tomorrow. 11/28/18 15:39 1. redressed left foot with DSD. 2. Cntinue NWB to left foot. appreciate PT help with this. 3. Once patient is transferred to [facility], then I will want to have him follow up with [facility] podiatry/ortho dept within next 7 days. [phone] for appt. 4. Patient to have dressing changes every other day. 5. I will follow up on 11/30/18 for repeat dressing change, if patient is still inpatient. 11/30/18 10:56 1. Bandage left intact 2. continue NWB. Discussed with PT that minimal weight to heel while transferring okay. any other ambulation should be with wheelchair for next 2-3 weeks. 3. Continue elevation of left foot while at rest. 4. Patient being transferred to have PICC placed at the moment. 5. I will ask that patient follow up with JOSE ANGEL Combs, at [facility] later this week, but before weekend. 6. Dressing change every other day. sterile 4x4, Kerlix and MEGHANA. Objective: Vital Signs Temp Pulse Resp BP Pulse Ox 36.9 C 66 16 133/65 H 95 11/30/18 08:00 11/30/18 08:00 11/30/18 08:00 11/30/18 08:00 11/30/18 08:00 Microbiology 11/26/18 18:30 Gram Stain - Final Foot - Tissue 11/26/18 18:30 Mycobacterial Smear (JARETT) - Final Foot - Tissue 11/26/18 18:30 Gram Stain - Final Foot - Eswab 11/26/18 18:30 Mycobacterial Smear (JARETT) - Final Foot - Eswab Mycobacterial Culture - Final Laboratory Results 11/27/18 04:58 11/30/18 04:45 11/29/18 11/30/18 12/01/18 05:59 05:59 05:59 Intake Total 1700 312 111 Output Total 1225 600 Balance 475 -288 111 dressing: C/D/I; cft to residual toes left foot <3sec; no ASOI - Pending Discharge Pending Discharge Within 24 Hours: Yes Pending Discharge Date: 12/01/18 Pending Discharge Time: 11:00 ICD10 Worksheet Patient Problems: Problems Problem Status Onset Cellulitis of left foot Acute Knee pain, bilateral Acute Neurodegenerative disorder Acute
--- NOTE | 2018-11-30 12:12 | PDIAF ---
- Diagnosis Diagnosis: MSSA bloodstream infection Code Status: Full Code - Medication Management Material Control Analyst Antibiotics: cefazolin 2gm q8 hours OR cefazolin 6gm q24 hours via continuous infusion Material Control Analyst Antibiotic Stop Date: 12/11/18 Discharge Medications: electronically signed and located in the Home Medication List. PICC Care - Routine: Yes - Orders Isolation Type: None - Labs/Radiology BMP Date: 12/07/18 CBC w/diff Date: 12/07/18 Call or Fax Lab and Imaging Results to: - Follow Up Care Current Providers and Referrals: Patient,NotPresent [Unknown] - As per Instructions Marcellus Luong MD [Medical Doctor] - 12/11/18 9:30 am
--- NOTE | 2018-11-30 12:56 | PCMIDPN ---
Assessment/Plan: Assessment: 68-year-old man with Staphylococcus aureus (MSSA) bloodstream infection secondary to a left foot deep surgical site infection which is now been operatively debrided. Overall he has tolerated his bloodstream infection without decompensation and he has tolerated cefazolin. Plan at least 2 weeks of IV therapy and will determine overall course of antibiotics in the outpatient setting, follow-up appointment has been set. 1. Staphylococcus aureus (MSSA) bloodstream infection with likely source left foot deep surgical site infection 2. Left foot surgical site infection, deep 3. Status post residual left 5th metatarsal resection and wound debridement 11/26 4. Status post left foot exostectomy 11/19/2018 5. Status post left 5th toe in left 5th metatarsal head resection 01/23/2018 6. Status post debridement and split thickness skin grafting the left lateral foot 02/27/2018 7. History of left 5th toe and left 5th metatarsal head chronic osteomyelitis with negative resection margins February 2018 8. Immunocompromised patient due to methotrexate use 9. Diabetes mellitus Plan: 1. Continue cefazolin 2 g q.8; tentative stop date will be 12/11/2018 but ongoing antimicrobial therapy will be determined in the outpatient setting 2. Repeat blood cultures negative for greater than 72 hr 3. Reviewed in detail potential side effects of beta-lactam antibiotics to include: allergy, rash, nausea, antibiotic-associated diarrhea, Clostridioides difficile colitis. Marcellus Luong MD Infectious Diseases 11/30/18 12:55 Subjective: No fever or chills developed over the past 24 hr. He continues to be free from diarrhea or rash on starting antibiotics. Had a right upper extremity PICC line placed this morning without complication. Objective: Vital Signs Temp Pulse Resp BP Pulse Ox 36.9 C 66 16 133/65 H 95 11/30/18 08:00 11/30/18 08:00 11/30/18 08:00 11/30/18 08:00 11/30/18 08:00 Microbiology 11/26/18 18:30 Gram Stain - Final Foot - Tissue 11/26/18 18:30 Mycobacterial Smear (JARETT) - Final Foot - Tissue 11/26/18 18:30 Gram Stain - Final Foot - Eswab 11/26/18 18:30 Mycobacterial Smear (JARETT) - Final Foot - Eswab Mycobacterial Culture - Final Laboratory Results 11/27/18 04:58 11/30/18 04:45 11/29/18 11/30/18 12/01/18 05:59 05:59 05:59 Intake Total 1700 312 111 Output Total 1225 600 Balance 475 -288 111 Medications Generic Name Dose Route Start Last Admin Trade Name Jose Roberto PRN Reason Stop Dose Admin Cefazolin Sodium/Dextrose 100 mls @ 200 mls/hr 11/26/18 20:30 11/30/18 11:53 Ancef IV 12/26/18 20:29 100 mls Q8H [facility] Protocol Microbiology 11/26/18 18:30 Foot - Tissue Gram Stain - Final 11/25/18 18:45 Blood Blood Culture - Final Staphylococcus Aureus 11/25/18 18:25 Blood Blood Culture - Final 11/25/18 18:25 Blood Blood Panel (PCR) - Final Staphylococcus Aureus S.aureus Methicillin Suscept. 11/27/18 05:04 Blood Blood Culture - Preliminary 11/27/18 04:58 Blood Blood Culture - Preliminary 11/26/18 18:30 Foot - Tissue Anaerobic Culture - Preliminary Staphylococcus Aureus Enterococcus Faecalis Laboratory Tests 11/30/18 04:45 Creatinine 1.0 - Physical Exam General Appearance: no apparent distress, non-toxic EENT: No scleral icterus Respiratory: No respiratory distress, No accessory muscle use Skin: erythema, other (Bilateral Lower extremity venous stasis dermatitis; left lower extremity postsurgical dressing not taken down) Neuro/Psych: alert, normal mood/affect, oriented x 3, No confused ICD10 Worksheet Patient Problems: Problems Problem Status Onset Cellulitis of left foot Acute Knee pain, bilateral Acute Neurodegenerative disorder Acute
--- NOTE | 2018-11-30 13:47 | ASDISCHSUM ---
Discharge Information Plan Status:SNF Medically Cleared to Leave:11/30/2018 Discharge Date:11/30/2018 CM D/C Disposition:Senior Living Facility ADT D/C Disposition:Senior Living Facility Projected Discharge Date:11/30/2018 11:00 AM Transportation at D/C:Wheelchair Van Discharge Delay Reason: Follow-Up Date:11/30/2018 11:00 AM Discharge Slot: Final Diagnosis: Placement Information Referral Type:*Fci/SNF Referral ID:[id number] Provider Name: Address 1: Phone Number: Address 2: Fax Number: City: Selection Factors: State: Referral Type:*Fci/SNF Referral ID:[id number] Provider Name:[facility] Address 1:[address] Address 2: City:[place] Selection Factors: State:[place] Patient Contact Information Contact Name:PAUL Relationship: Address:[address] [address] Work Phone: City:[place] Alternate Phone: State/Zip Code:[place] [address] Email: Financial Information Financial Class:Medicare Primary Plan Desc:MEDICARE INPATIENT Primary Plan Number:[id number] Secondary Plan Desc:[place] Secondary Plan Number:[id number] Assessment Information LACE LACE Length of stay for Answers: 4-6 days current admission Acuity / Level of Answers: Yes Care: Did the patient have an inpatient admission? Comorbidities - select Answers: Dementia all that apply Diabetes (uncontrolled or controlled) Opioid dependence / Chronic pain Other Notes: HLD; HTN # of Emergency department Answers: 1-2 visits in the last 6 months Score: 17 Date Signed: 11/30/2018 01:48 PM Electronically Signed By:YANA Niño [facility] CM Progress Note CM Note CM Note Notes: Patient admitted for Cellulitis, to OR today. Patient resides at [facility]. Met with patient and brother, Mic #[phone]. Patient likely needs SNF on d/c and brother states they would like [facility] (patient has been there in the past). Referral sent to [facility] via [employer]. CM will follow. Plan: [facility] SNF pending acceptance. Date Signed: 11/26/2018 04:39 PM Electronically Signed By:Janna Siddiqui RN [facility] CM Progress Note CM Note CM Note Notes: Pt chart reviewed and attempted to see Pt twice but he was sleeping. Pt had Debridement osteomyelitis & removal of infected Bone 11/27/18. Sent updates to [facility] as Pt has been accepted to [facility]. CM available for needs. PLAN: Likely Merged With [facility] Date Signed: 11/27/2018 02:14 PM Electronically Signed By:Gloria Owen Case Management Discharge Plan Note Case Management Discharge Discharge Order Complete? Answers: Yes Patient to Obtain Answers: Other Notes: [facility] Medications Transportation Arranged Answers: Other Notes: w/c van Transport will Pick (Date 11/30/2018 04:00 PM & Time) Faxed Final Orders Answers: Yes Agency/Facility Transfer Answers: Yes Report Printed & Faxed to Receiving Agency Family Notified Answers: Yes Discharge Comments Notes: Pt is discharging to [facility] today. D/C order, meds, PASRR, facility transfer sent via [employer] and notfiied. Transport arranged by . Pt's brother is coming from [place] and will be here to assist. Date Signed: 11/30/2018 03:22 PM Electronically Signed By:YANA Niño Intervention Information Intervention Type:*Incorrect Registration Date of Service:11/25/2018 10:25 AM Patient Type:Inpatient Staff Member:JUAN Dyer Courtney Hours: Discipline: Severity: Comment: Intervention Type:*MIRIAM-Signed Date of Service:11/26/2018 02:10 PM Patient Type:Observation Staff Member:Aniyah Adame Hours: Discipline: Severity: Comment:
--- NOTE | 2018-11-30 15:23 | ASMTDCNOTE ---
Case Management Discharge Discharge Order Complete? Answers: Yes Patient to Obtain Answers: Other [facility] Medications Transportation Arranged Answers: Other Notes: w/c van Transport will Pick (Date 11/30/2018 04:00 PM & Time) Faxed Final Orders Answers: Yes Agency/Facility Transfer Answers: Yes Report Printed & Faxed to Receiving Agency Family Notified Answers: Yes Discharge Comments Notes: Pt is discharging to [facility] today. D/C order, meds, PASRR, facility transfer sent via [employer]you and notfiied. Transport arranged by . Pt's brother is coming from [place] and will be here to assist. Date Signed: 11/30/2018 03:22 PM Electronically Signed By:YANA Niño
--- NOTE | 2018-11-30 15:29 | PDDCSUM ---
Discharge Summary Discharge Summary: Date of Admission: 11/25/2018 Date of Discharge: 11/30/2018 Discharge Diagnoses: MSSA bacteremia LLE Osteomyelitis, s/p resection 5th metatarsal L foot cellulitis Diabetes Mellitus, uncontrolled Hyponatremia, stable Polymyositis Immunocompromised status HTN Dementia Abnormal chest XR - RLL nodular opacity Admission Diagnoses: Left diabetic foot infection with possible osteomyelitis Fever Diabetes mellitus Polymyositis Hypertension Subtle nodular opacity on chest x-ray Consultants: Podiatry-Dr. Mello Michael Infectious Disease-Dr. Marcellus Luong Hospital Course: The patient is a 68-year-old male with history of dementia, peripheral arterial disease, polymyositis, osteomyelitis of the left foot, and multiple left foot surgeries who presented to the ED with fever. He had most recently undergone left foot surgery about 1 week prior with his terminal worker, Dr. Michael, and was found to have a surgical site infection with osteomyelitis. He was started on vancomycin and Unasyn. He underwent surgical resection of the 5th left metatarsal base with Dr. Michael on November 26. Blood cultures grew MSSA and the patient was switched to cefazolin. Wound cultures also grew MSSA with a little growth of Enterococcus faecalis. The patient was clinically stable and was transferred to [facility], to continue receiving IV cefazolin and receive ongoing care. Physical Exam: General: The patient is a male who is alert and in no acute distress. HEENT: normocephalic, extraocular movements intact, conjunctivae clear, no lesions on face. Nares and oral mucosa pink and moist. Neck: trachea midline, no visible masses, no external lesions. CV: +S1/S2, RRR, no MRG. Resp: unlabored, CTAB no RRW. Abd: soft and nondistended. +truncal obesity. Musculoskeletal: Left foot dressed and in a soft boot brace-dressing CDI. Neuro: cranial nerves II - XII grossly intact. Intact gross motor and sensory function. Slow mentation. Psych: appropriate mood/flat affect. Skin: no pallor. +purpuric discoloration of L ankle. Heme/lymph: + bilateral ankle edema. Condition: Fair. Discharged to: group home facility-[facility] Pertinent tests/labs/imaging: * Two-view chest x-ray: opacity right lower lobe at costophrenic angle. Recommend repeat chest x-ray in 2 weeks to ensure resolution. * Left foot MRI wwo contrast: Postsurgical changes are seen of resection of the fifth ray beginning at the proximal diaphysis of the fifth metatarsal. Evidence of osteomyelitis at the residual fifth metatarsal at the proximal metaphysis. Adjacent fistula track extending to the skin laterally and surrounding cellulitis. No evidence for abscess. * Left foot x-ray: 1. Postsurgical change of resection of the 5th ray beginning at the proximal diaphysis of the 5th metatarsal. Question mild adjacent osteomyelitis in the lateral margin of the proximal metadiaphysis, with overlying soft tissue swelling. 2. Soft tissue calcification in the plantar fascia at the insertion of the calcaneus. Cortical irregularity and lucency at the enthesophyte, which could be degenerative or foci of osteomyelitis. 3. Degenerative change, as above. * Blood cultures x 2 - MSSA (Final). * Wound cultures x 2 from L foot - +4 MSSA, +2 E. Faecalis (Final Cx/ susceptibility result pending) Medications: Please see med rec form. Continue cefazolin 2gm IV q8h or 6gm continuous IV q24h through December 11 2018. Resume home medications. Continue prn pain medication. Special instructions: * NWB LLE. OK for minimal weight to heel w/ transfers. Any other ambulation should be with wheelchair for next 2-3 weeks. * Continue elevation of left foot while at rest. * Follow up with JOSE ANGEL Combs, at [facility] later this week, but before weekend. [phone] for appt. * Wound Care instructions: Dressing change every other day. sterile 4x4, Kerlix and MEGHANA. * Check labs on Friday12/07/18 - results to be sent to Infectious Disease specialist, who will also follow up on final culture results. * Recommend repeat chest XR in 2 weeks. Follow up: * Marcellus Luong MD [Medical Doctor] - 12/11/18 9:30 am (Infectious disease specialist - to discuss final wound/blood culture results and completion of antibiotics. ) * Mello Michael DPM [Doctor of Podiatric Medicine] - 3-5 days (Make an appt to follow up with the surgical/podiatry PA) * Mary Beasley MD [Primary Care Provider] - follow up in 1 week (PCP - To discuss recent hospitalization. Consider to adjust diabetes medications if blood sugar continues to be high. Recommend to get a follow up chest XR to evaluate possible RLE nodular opacity in 2 weeks. ) > 30 minutes of total time was spent on counseling and coordination of care for this patient's discharge.
--- NOTE | 2018-11-30 15:29 | PDIAF ---
- Diagnosis Diagnosis: MSSA bloodstream infection Code Status: Full Code - Medication Management Cardiovascular Or Nurse Antibiotics: cefazolin 2gm q8 hours OR cefazolin 6gm q24 hours via continuous infusion Cardiovascular Or Nurse Antibiotic Stop Date: 12/11/18 Discharge Medications: electronically signed and located in the Home Medication List. PICC Care - Routine: Yes - Orders Services needed: Registered Nurse, [employer], Physical Therapy, Occupational Therapy Isolation Type: None Diet Recommendation: cardiac -low fat low salt, ADA 2000 consistent carb Diet Texture: Regular Texture Diet Weigh Patient: weekly Wound Care Instructions: Wound Care instructions: Dressing change every other day. sterile 4x4, Kerlix and MEGHANA. Activity/Weight Bearing Restrictions: NWB LLE. OK for minimal weight to heel w/ transfers. Any other ambulation should be with wheelchair for next 2-3 weeks. Continue elevation of left foot while at rest. Additional Instructions: NWB LLE. OK for minimal weight to heel w/ transfers. Any other ambulation should be with wheelchair for next 2-3 weeks. Continue elevation of left foot while at rest. Follow up with JOSE ANGEL Combs, at [facility] later this week, but before weekend. [phone] for appt. Wound Care instructions: Dressing change every other day. sterile 4x4, Kerlix and MEGHANA. Check labs on Friday12/07/18 - results to be sent to Infectious Disease specialist, who will also follow up on final wound culture results. Recommend repeat chest XR in 2 weeks. - Labs/Radiology BMP Date: 12/07/18 CBC w/diff Date: 12/07/18 Call or Fax Lab and Imaging Results to: - Follow Up Care Current Providers and Referrals: Marcellus Luong MD [Medical Doctor] - 12/11/18 9:30 am (Infectious disease specialist - to discuss final wound/blood culture results and completion of antibiotics. ) Mello Michael DPM [Doctor of Podiatric Medicine] - 3-5 days (Make an appt to follow up with the surgical/podiatry PA) Mary Beasley MD [Primary Care Provider] - follow up in 1 week (PCP - To discuss recent hospitalization. Consider to adjust diabetes medications if blood sugar continues to be high. Recommend to get a follow up chest XR to evaluate possible RLE nodular opacity in 2 weeks. )
[2018-11-30 16:07] VITALS: BP 142/71
== END 2018-11-30 16:26 | DRG 501 ==
LOC: EDUNIT# → INTOOBSV 19:41 → F1N 22:42 → UNDODISOB 11-26 13:10 → OBSVTOIN 11-26 15:51
PROVIDERS: ADMIT Student in an Organized Health Care Education/Training Program; ATTEND Internal Medicine
PROC: 0LU Tendons, Supplement (ICD-10-PCS; principal; 2018-11-26 18:30)
PROC: 0QTP0ZZ Resection of Left Metatarsal, Open Approach (ICD-10-PCS; principal; 2018-11-26 18:30)
PROC: 02H633Z Insertion of Infusion Device into Right Atrium, Percutaneous Approach (ICD-10-PCS; 2018-11-30)
DX: T87.43 Infection of amputation stump, right lower extremity (principal); L03.116 Cellulitis of left lower limb; M86.172 Other acute osteomyelitis, left ankle and foot; B95.61 Methicillin susceptible Staphylococcus aureus infection as the cause of diseases classified elsewhere; B95.2 Enterococcus as the cause of diseases classified elsewhere; R78.81 Bacteremia; E11.65 Type 2 diabetes mellitus with hyperglycemia; E11.42 Type 2 diabetes mellitus with diabetic polyneuropathy; E87.1 Hypo-osmolality and hyponatremia; M33.20 Polymyositis, organ involvement unspecified; Z79.899 Other long term (current) drug therapy; I10 Essential (primary) hypertension; E78.5 Hyperlipidemia, unspecified; R91.8 Other nonspecific abnormal finding of lung field; F03.90 Unspecified dementia, unspecified severity, without behavioral disturbance, psychotic disturbance, mood disturbance, and anxiety
CPT/HCPCS: 96374; 97162-GP; 97166-GO; 97530-GO; 97530-GP; 97535-GO; A9585; C1751; G0378; J0295; J0690; J1815; J2704; J3010; J3370

== ENCOUNTER → 2019-01-01 | Outpatient (CLI) | payer OTHER, MEDICAID | LOC: BMCIMAGING 10:24 | PROVIDERS: ATTEND Podiatrist Foot & Ankle Surgery | DX: L97.521 Non-pressure chronic ulcer of other part of left foot limited to breakdown of skin (principal); Z89.429 Acquired absence of other toe(s), unspecified side ==